=== PATIENT | male | born 1955 | race Caucasian/White ===

== ENCOUNTER 2021-04-15 11:21 | Emergency (ER) | payer MEDICARE, SELFPAY ==
[2021-04-15 11:30] VITALS: BP 128/78; PULSE 89; RESP 16; TEMP 37.6; O2SAT 99
--- NOTE | 2021-04-15 11:55 | ED.SKABFB ---
HPI - Skin/Abscess/Foreign Bdy General Chief complaint: Skin/Abscess/Foreign Body Stated complaint: lt armpit swelling/redness Source: patient and RN notes reviewed Limitations: no limitations History of Present Illness HPI narrative: The patient, who is on several meds, presents with axillary discomfort. Patient states he has a shorter 1 to 2-day history of left armpit discomfort and redness. Symptoms are mild, worse palpation, better with rest, and seems to have diffusely extended from half-dollar size area to hand size. No fever, prior/other rashes, discharge, streaking; he desires offered parenteral/IM treatment. There is no specific abscess or fluctuance; but there is some minimal induration/early phlegmon; he was traveling and would like some home med refill also Related Data Home Medications Medication Instructions Recorded Confirmed acetaminophen-codeine 1 tablet PO PRN PRN 04/15/21 04/15/21 alprazolam 0.25 mg PO DAILY 04/15/21 04/15/21 aspirin [Adult Aspirin EC Low 81 mg PO DAILY 04/15/21 04/15/21 Strength] whtkfxufmy-akvubgakvljdx-ldmp 1 - 2 tablet PO PRN PRN 04/15/21 04/15/21 [Fioricet] cholecalciferol (vitamin D3) 25 mcg PO DAILY 04/15/21 04/15/21 [Vitamin D3] duloxetine 30 mg PO DAILY 04/15/21 04/15/21 econazole 1 applic TOPICAL DAILY 04/15/21 04/15/21 nitroglycerin [Nitrostat] 0.4 mg SUBLINGUAL ONCE 04/15/21 04/15/21 pantoprazole 40 mg PO QAM 04/15/21 04/15/21 propranolol 10 mg PO Q12H 04/15/21 04/15/21 rosuvastatin 20 mg PO DAILY 04/15/21 04/15/21 Allergies Allergy/AdvReac Type Severity Reaction Status Date / Time Sulfa (Sulfonamide AdvReac Nausea Verified 04/15/21 11:31 Antibiotics) tramadol AdvReac Insomnia Verified 04/15/21 11:31 Review of Systems Review of Systems: Narrative: General/Constitutional: No weight loss,fever Eyes: N0: Redness,discharge Ears/Nose/Throat: No: Epistaxis,ear discharge Respiratory: Denies: Hemoptysis Gastrointestinal: No Vomiting, Bleeding-rectal Skin: No REPORTS possible lumps, eruption Neurologic: No Focal Weakness,Sz Hematologic: Denies: Petechiae/Purpura Psychiatric: No: Suicida ideationl All Other Systems: Reviewed and Negative PMFSH Comments At time of signature, agree with nursing past medical, surgical, social and family history. There is no relevant family history pertinent to the presenting complaint Exam Narrative: Exam Narrative: General Appearance: Well nourished, Normocephalic Eye: PERRLA, Conjunctiva clear Ear: External ear normal Nose: Normal nose, Nare clear Mouth/Throat: Normal appearing, Supple Respiratory: Airway patent, No respiratory distress Musculoskeletal: Moves all extremities, Non tender Spine/Back: Normal ROM Skin: Warm, Dry; hand-sized area pink/inflamed, tender left axilla with rare areas of induration Neurological: A&O x3 Psychiatric: Normal mood, Normal affect Course Vital Signs Vital signs: Vital Signs Temperature 99.6 F 04/15/21 11:30 Pulse Rate 89 04/15/21 11:30 Respiratory Rate 16 04/15/21 11:30 Blood Pressure 128/78 04/15/21 11:30 Pulse Oximetry 99 04/15/21 11:30 Temperature 99.6 F 04/15/21 11:30 Pulse Rate 89 04/15/21 11:30 Respiratory Rate 16 04/15/21 11:30 Blood Pressure 128/78 04/15/21 11:30 Pulse Oximetry 99 04/15/21 11:30 Discharge Plan Discharge Clinical Impression: Cellulitis Qualifiers: Site of cellulitis: extremity Site of cellulitis of extremity: axilla Laterality: left Qualified Code(s): L03.112 - Cellulitis of left axilla Patient Disposition: Home, Self-Care Condition: Stable Instructions: Antibiotic Form, Cellulitis (ED) Additional Instructions: Take clindamycin with food, antacid and or probiotic; stop if diarrhea occurs Go to hospital if not improved per handout Prescriptions: New clindamycin HCl 300 mg capsule 300 mg PO TID Qty: 21 RF: 0 nitroglycerin 0.4 mg tablet, sublingual 0.4 mg sublingual Q5-15M
[2021-04-15] MEDS: cefTRIAXone 1 GM VIAL 0.5 GM IM (12:20)
[2021-04-15] MEDS: LIDOCAINE HCL 1% LOCAL INJ 20 ML VIAL 2.1 ML INFILTRATE (12:21)
== END 2021-04-15 12:50 | disposition home or self-care (01) ==
PROVIDERS: Emergency Provider Emergency Medicine
DX: L03.112 Cellulitis of left axilla (principal); Z95.5 Presence of coronary angioplasty implant and graft; E78.00 Pure hypercholesterolemia, unspecified; K21.9 Gastro-esophageal reflux disease without esophagitis; N40.0 Benign prostatic hyperplasia without lower urinary tract symptoms
CPT/HCPCS: 96372; 99213; G0463; J0696

== ENCOUNTER 2022-10-31 08:47 | Inpatient (IN) | payer MEDICARE, SELFPAY ==
[2022-10-31] VITALS (15 sets, daily range): BP systolic 93–103; BP diastolic 50–78; PULSE 82–105; RESP 16–27; TEMP 36.6–37.3; O2SAT 93–100; BMI 23.8
--- NOTE | ~2022-10-31 | CT_ITS ---
EXAMINATION: CTA chest PE abdomen pel DATE: 11/04/2022 15:16 INDICATION: Cough, shortness of breath, and chest pain. TECHNIQUE: Computed tomography angiography (CTA) of the chest was performed with 100 mL Omnipaque-350 intravenous contrast timed to evaluate the pulmonary arteries. Coronal maximum intensity projection 3D-reconstructions were created by the technologist. Computed tomography (CT) of the abdomen and pelv is was performed with intravenous contrast. Automated exposure control and iterative reconstruction t echnique were employed. The dose-length product was 641.56 mGy-cm. COMPARISON: CT abdomen and pelvis 10/31/2022 FINDINGS: CTA chest: There is mild emphysema. There are small pleural effusions. There is mild dependent atelec tasis bilaterally. The heart size is normal. There are coronary artery calcifications. No pericardial effusion. There is no pulmonary embolus. There is mild thoracic spondylosis. CT abdomen and pelvis: There are 2 liver masses measuring up to 1.5 cm that were hyperenhancing on th e prior CT and hyperechoic on the prior ultrasound, consistent with hemangiomas. There are cysts in t he liver measuring up to 13 mm. The gallbladder, spleen, pancreas, and adrenal glands are normal. The re are cysts in the kidneys measuring up to 1.5 cm on the right. The prostate is mildly enlarged. The re is a left inguinal hernia containing fat. There are scattered diverticula in the colon. There is f at stranding around the sigmoid colon. There are foci of free gas near the sigmoid colon. There are s mall abscesses near the sigmoid colon measuring up to 3.7 x 3.0 x 1.5 cm (volume of 5 mL given the sh ape). There are changes of right inguinal hernia repair. There are no pathologically enlarged lymph n odes. There is moderate lumbar spondylosis. IMPRESSION: 1. Sigmoid diverticulitis with microperforation and worsened small perisigmoid abscesses. 2. No pulmonary embolus. 3. New small pleural effusions. 4. Mild emphysema. Reviewed, dictated and finalized at location A. LE MACHINE OPERATOR
--- NOTE | ~2022-10-31 | XR_ITS ---
XR chest 2V 11/06/2022 07:57 Indication: Shortness of breath Procedure: 2 view chest Comparison: 10/31/2022 Findings: Heart size normal. Small pleural effusions. Bibasilar atelectasis. No focal pneumonia, charisma a or pneumothorax. Impression: 1: Small pleural effusions with bibasilar atelectasis. Reviewed, dictated and finalized at location A. MITH HELPER Impression: 1: Small pleural effusions with bibasilar atelectasis.
--- NOTE | ~2022-10-31 | CT_ITS ---
EXAMINATION: CT abdomen pelvis w con DATE: 10/31/2022 10:13 INDICATION: Lower abdominal pain with increasing intensity TECHNIQUE: Computed tomography (CT) of the abdomen and pelvis was performed with 100 mL Omnipaque-350 intravenous contrast. Automated exposure control and iterative reconstruction technique were employe d. The dose-length product was 338.36 mGy-cm. COMPARISON: None FINDINGS: Mild dependent atelectasis in bilateral lower lobes. Heart size is normal. No pericardial or pleural effusion. There are couple subcentimeter well-defined low attenuation hepatic cysts. Less well-define d 1 cm hypodense lesion in the right hepatic lobe and larger 1.5 cm lesion in the inferior right hepa tic lobe which is mixed hypodense and enhancing. Gallbladder, pancreas, spleen and bilateral adrenal glands are normal. There are bilateral low-attenuation renal cysts measuring up to 1.7 cm in the righ t kidney. There is mild scattered colonic diverticulosis with focal mild wall thickening and surround ing inflammation presenting at the distal sigmoid colon consistent with diverticulitis. There is a si ngle small focus of extraluminal gas in the left pelvic retroperitoneum along the anterior margin of the distal left common iliac artery. No free intraperitoneal gas or abscess. Minimal nonloculated trinh e fluid in the deep pelvis. Small bowel and appendix are normal. Bladder is normal. No pathologically enlarged abdominal or pelvic lymphadenopathy. Mild to moderate lumbar spondylosis. IMPRESSION: 1. Sigmoid diverticulitis with likely microperforation but no abscess. 2. Indeterminate 1.5 cm right hepatic lobe lesion statistically most likely to represent a hemangioma but would recommend further evaluation with nonemergent pre and postcontrast MRI or CT. Reviewed, dictated and finalized at location B. ERCIAL TITLE EXAMINER
--- NOTE | ~2022-10-31 | US_ITS ---
EXAMINATION: US abdomen limited DATE: 11/03/2022 15:26 INDICATION: Liver mass. TECHNIQUE: Multiple grayscale and Doppler ultrasound images of the abdomen were obtained. COMPARISON: CT abdomen and pelvis 10/31/2022 FINDINGS: The visualized portions of the head and body of the pancreas are normal. There is a 1.9 cm hyperechoic mass in right hepatic lobe. There is a 1.8 cm hyperechoic mass in left hepatic lobe. Ther e is antegrade flow in main portal vein. The gallbladder is normal in size and contains sludge. No ga llstones or sonographic Sebastian sign. Gallbladder wall thickening is noted. The common duct is normal and measures 4 mm. IMPRESSION: 1. Two hyperechoic liver masses with the larger measuring 1.9 cm. In the absence of known malignancy or chronic liver disease, these findings are likely hemangiomas. 2. Gallbladder sludge. Gallbladder wall thickening may be seen with chronic cholecystitis, interstiti al edema, or chronic liver disease. Reviewed, dictated and finalized at location A. OISOTOPE TECHNICIAN IMPRESSION: 1. Two hyperechoic liver masses with the larger measuring 1.9 cm. In the absenc e of known malignancy or chronic liver disease, these findings are likely heman giomas. 2. Gallbladder sludge. Gallbladder wall thickening may be seen with chronic cho lecystitis, interstitial edema, or chronic liver disease.
--- NOTE | ~2022-10-31 | XR_ITS ---
EXAMINATION: XR chest 1V portable DATE: 11/07/2022 06:06 INDICATION: Shortness of breath. TECHNIQUE: A single frontal view of the chest was obtained. COMPARISON: Chest 2 views 11/06/2022, chest CT 11/04/2022 FINDINGS: There are small pleural effusions. There is no pneumonia or pneumothorax. The heart size is normal. IMPRESSION: 1. Stable small pleural effusions. Reviewed, dictated and finalized at location A. OW FABRIC CALENDERER
--- NOTE | ~2022-10-31 | XR_ITS ---
EXAMINATION: XR chest 1V portable DATE: 10/31/2022 09:29 INDICATION: Low abdominal pain. TECHNIQUE: A single frontal view of the chest was obtained on 2 radiographs. COMPARISON: None. FINDINGS: There is no pneumonia, pleural effusion, or pneumothorax. The heart size is normal. IMPRESSION: 1. No acute cardiopulmonary disease. Reviewed, dictated and finalized at location A. R SAFETY TEACHER
--- NOTE | 2022-10-31 09:10 | ED.ABDPAIN ---
HPI - Abdominal Pain General Chief Complaint: Abdominal Pain Stated Complaint: abd pain Time Seen by Provider: 10/31/22 08:54 History of Present Illness HPI narrative: Pt. w/ PMH of hernia repair, GERD, migraines and HLD presents to ER w/complaints of having abdominal pain that started yesterday and has gradually intensified throughout yesterday and into this morning. The pain is low in the abdomen, nothing makes better, but coughing, yawning and sneezing makes the pain worse. He has no V/D, but has had some nausea. He has a PMH of a hernia repair years ago. Denies any CP, dyspnea. Pain scale (0-10): 7 Radiation: none Migration to: no migration Related Data Home Medications Medication Instructions Recorded Confirmed acetaminophen 325 mg-codeine 30 mg 1 tablet PO PRN PRN Pain 04/15/21 04/15/21 tablet alprazolam 0.25 mg tablet 0.25 mg PO DAILY 04/15/21 04/15/21 aspirin 81 mg tablet,delayed 81 mg PO DAILY 04/15/21 04/15/21 release yftyrscdki-qkjyjyirdafcd-fzqjkjbb 1 - 2 tablet PO PRN PRN Headache 04/15/21 04/15/21 50 mg-325 mg-40 mg tablet cholecalciferol (vitamin D3) 25 25 mcg PO DAILY 04/15/21 04/15/21 mcg (1,000 unit) capsule (Vitamin D3) duloxetine 30 mg capsule,delayed 30 mg PO DAILY 04/15/21 04/15/21 release econazole 1 % topical cream 1 applic topical DAILY 04/15/21 04/15/21 nitroglycerin 0.4 mg sublingual 0.4 mg sublingual ONCE 04/15/21 04/15/21 tablet (Nitrostat) pantoprazole 40 mg tablet,delayed 40 mg PO QAM 04/15/21 04/15/21 release propranolol 10 mg tablet 10 mg PO Q12H 04/15/21 04/15/21 rosuvastatin 20 mg tablet 20 mg PO DAILY 04/15/21 04/15/21 Allergies Allergy/AdvReac Type Severity Reaction Status Date / Time Sulfa (Sulfonamide AdvReac Nausea Verified 10/31/22 09:02 Antibiotics) tramadol AdvReac Insomnia Verified 10/31/22 09:02 Review of Systems Review of Systems: All systems reviewed & are unremarkable except as noted in HPI and below PMFSH Past Medical History Medical History Dyslipidemia GERD (gastroesophageal reflux disease) Migraines Surgical History Surgical History H/O hernia repair Social History Social History Alcohol use details: social Exam Const: General: healthy appearing and alert; No no acute distress (appears to be in pain distress.) Nutritional Appearance: well nourished Orientation/consciousness: patient oriented x3 Limitations: no limitations HENMT: Head: normal to inspection Face/Nose/Sinus: Normal external nose present Face and sinus: normal facial exam Mouth: Yes Normal oral and palatal mucosa present Eyes: Conjunctivae: conjunctivae normal Neck: Neck: normal visual inspection and no lymphadenopathy Chest: Chest palpation & inspection: normal inspection of the chest Resp: Effort & Inspection: normal respiratory effort Auscultation: clear to auscultation bilaterally Cardio: Rate: regular rate Rhythm: regular rhythm Heart sounds: no murmurs GI: Inspection: non-distended GI Palp: Yes Soft to palpation, Yes Tenderness to palpation present (GI) (RLQ, LLQ, and suprapubic), Yes Guarding due to palpation present (GI) (Worse in LLQ, voluntary), No Rigid due to palpation, No Hernia present and No Palpable mass present Auscultation: normal bowel sounds Back/Spine/Pelvis: Back: no CVA tenderness Skin: General skin exam: normal color Rashes: no rashes Wounds: no wounds Neuro: General: patient oriented x3, moves all extremities and no focal motor deficits Speech: normal speech Extrem: General: normal to inspection and no pedal edema Psych: Mental Status: mental status grossly normal Affect: normal affect Course Course Emergency Course: Pt's labs were reviewed and it is noted that he has a grossly elevated WBC count with Neutrophilic shift. CT scan demonstrates a Divert
[2022-10-31 09:14] LABS: Basophils Absolute Auto 0.1 K/mm3 (0.0-0.1); Basophils Percent Auto 0.3 % (0.2-1.2); Eosinophils Percent Auto 0.1 % (0-4.4); Hematocrit 44.3 % (42.0-52.0); Hemoglobin 14.9 g/dL (14.0-18.0); Immature Granulocyte Absolute 0.09 K/mm3 (0.00-0.031); Immature Granulocyte Percent A 0.5 % (0-0.5); Lymphocytes Absolute Auto 1.07 K/mm3 (0.9-3.2); Lymphocytes Percent Auto 5.7 % (18.3-44.2); Mean Corpuscular HGB Conc 33.6 g/dl (32-36); Mean Corpuscular Hemoglobin 28.9 pg (26-34); Mean Corpuscular Volume 85.9 fl (80-100); Monocytes Absolute Auto 1.6 K/mm3 (0.1-0.6); Monocytes Percent Auto 8.7 % (2.6-8.5); Neutrophils Absolute Auto 15.8 K/mm3 (1.3-6.7); Neutrophils Percent Auto 84.7 % (45.5-73.1); Platelet Count Result 203 k/mm3 (150-375); Red Blood Count 5.16 M/mm3 (4.6-6.20); Red Cell Distribution Width 13.3 % (11.5-14.5); White Blood Count 18.7 K/mm3 (4.5-10.0)
[2022-10-31 09:30] LABS: Alanine Aminotransferase 27 U/L (6-50); Albumin Level 3.9 g/dL (3.5-5.1); Alkaline Phosphatase 68 U/L (38-126); Anion Gap 1 mmol/L (8-16); Aspartate Amino Transferase 24 U/L (17-59); Bilirubin,Total 0.7 mg/dL (0.2-1.3); Blood Urea Nitrogen 23 mg/dL (9-20); Calcium 8.8 mg/dL (8.4-10.2); Carbon Dioxide 30 mmol/L (22-30); Chloride 102 mmol/L (98-107); Estimated CRCL calculation 70 ml/min; Estimated Glomerular Filt Rate > 60; Glucose 115 mg/dL (65-110); Lipase 151 U/L (23-300); Potassium 3.6 mmol/L (3.4-5.0); Sodium 133 mmol/L (137-145)
[2022-10-31] MEDS: ONDANSETRON INJ 4 MG/2 ML VIAL IV PUSH (09:44)
[2022-10-31] MEDS: MORPHINE SULFATE (*CRX) 4 MG/ML INJ IV PUSH (09:44)
[2022-10-31] MEDS: SODIUM CHLORIDE 0.9% IV 1,000 ML 999 ML IV CONT ×2 (09:45→10:56)
[2022-10-31 09:59] LABS: Appearance Urine Clear (Clear); Bilirubin Urine Negative (Negative); Blood Urine Trace-intact (Negative); Color Urine Yellow (Yellow); Glucose Urine UA Negative (Negative); Ketones Urine Negative (Negative); Leukocyte Esterase Ur Negative LEU/UL (Negative); Nitrate Urine Negative (Negative); Protein Urine Negative (Negative); Urobilinogen Urine 0.2 mg/dL (<2.0)
[2022-10-31 10:09] LABS: Bacteria Urine Trace /hpf; Mucus Urine Rare /lpf; Squamous Epithelial Cell Urine Rare /hpf (Few); WBC Urine 0-3 /hpf
[2022-10-31 10:12] LABS: Add Urine Microscopic? YES
[2022-10-31 10:56] LABS: Lactic Acid Reflex 1.3 mmol/L (0.7-2.0)
[2022-10-31] MEDS: metroNIDAZOLE 500 MG/ISO 100ML 500 MG/100 ML BAG 100 MG IVPB (10:56)
[2022-10-31] MEDS: HYDROmorphone HCL INJ (*CRX) 1 MG/ML SYR IV PUSH ×4 (10:56→22:43)
[2022-10-31 12:29] LABS: Influenza A QL RT-PCR Negative (Negative); Influenza B QL RT-PCR Negative (Negative); SARS-CoV-2 RNA PCR Negative
--- NOTE | 2022-10-31 12:38 | PM.IMHP ---
H&P: HPI History of Present Illness Date/Time: 10/31/22 12:38 Chief Complaint: Diverticulitis with micro perforation Narrative: The patient is a 66-year-old male presenting to the emergency department complaining of severe lower abdominal pain, left greater than right. Patient reports that the pain started yesterday and has intensified since that time. The patient reports the pain is now more localized in the left lower quadrant. The patient reports the pain seems to be worse with movement, although it is constantly present. The patient reports associated nausea and anorexia, however denies any vomiting or changes in bowel habits. Patient denies previous episodes. The patient has had previous colonoscopy significant for diverticulosis. Review of Systems Constitutional: Constitutional: Reports as per HPI, Reports anorexia, Denies chills, Reports fatigue, Reports fever(s), Denies increased appetite, Reports lethargy, Reports malaise, Reports poor appetite, Reports weakness, Denies weight gain and Denies weight loss Eyes: Eyes: Reports no additional eye complaints ENT: Reports system reviewed and no additional complaints, except as documented Cardiovascular: Cardiovascular: Reports no additional cardiovascular complaints Respiratory: Respiratory: Reports no additional respiratory complaints Gastrointestinal: Gastrointestinal: Reports as per HPI, Reports abdominal pain, Reports bloating, Reports GI cramping, Reports nausea, Denies vomiting and Denies hematemesis Genitourinary: Genitourinary: Reports no additional male genitourinary complaints Musculoskeletal: Musculoskeletal: Reports no additional musculoskeletal complaints Integumentary/Breasts: Skin/Breast: Reports system reviewed and no additional complaints, except as docu Neurologic: Reports system reviewed and no additional complaints, except as documented Psychiatric: Psychiatric: Reports no additional psychiatric complaints Endocrine: Endocrine: Reports no additional endocrine complaints Hematologic/Lymphatic: Hematologic/Lymphatic: Reports no additional hematologic/lymphatic complaints Allergic/Immunologic: Allergic/Immunologic: Reports no additional allergic/immunologic complaints PMFSH Past Medical History Medical History Dyslipidemia GERD (gastroesophageal reflux disease) Migraines Surgical History Surgical History H/O hernia repair Social History Social History Alcohol use details: social Meds Home Medications and Allergies Home Medications Medication Instructions Recorded Confirmed Type acetaminophen 325 mg-codeine 30 mg 1 tablet PO PRN PRN Pain 04/15/21 04/15/21 History tablet alprazolam 0.25 mg tablet 0.25 mg PO DAILY 04/15/21 04/15/21 History aspirin 81 mg tablet,delayed 81 mg PO DAILY 04/15/21 04/15/21 History release prcqsmybec-uktzjspuhzxcq-ljlnnxen 1 - 2 tablet PO PRN PRN Headache 04/15/21 04/15/21 History 50 mg-325 mg-40 mg tablet cholecalciferol (vitamin D3) 25 25 mcg PO DAILY 04/15/21 04/15/21 History mcg (1,000 unit) capsule (Vitamin D3) clindamycin HCl 300 mg capsule 300 mg PO TID #21 caps 04/15/21 Rx duloxetine 30 mg capsule,delayed 30 mg PO DAILY 04/15/21 04/15/21 History release econazole 1 % topical cream 1 applic topical DAILY 04/15/21 04/15/21 History nitroglycerin 0.4 mg sublingual 0.4 mg sublingual Q5-15M PRN chest 04/15/21 Rx tablet pain #20 tabs nitroglycerin 0.4 mg sublingual 0.4 mg sublingual ONCE 04/15/21 04/15/21 History tablet (Nitrostat) pantoprazole 40 mg tablet,delayed 40 mg PO QAM 04/15/21 04/15/21 History release propranolol 10 mg tablet 10 mg PO Q12H 04/15/21 04/15/21 History rosuvastatin 20 mg tablet 20 mg PO DAILY 04/15/21 04/15/21 History Allergies Allergy/AdvReac Type Severity Reaction Status Date / T
[2022-10-31] MEDS: PIPERACILLIN/TAZOBACTAM SOD 4.5 GM in SODIUM CHLORIDE 0.9% IV 100 ML 200 ML IVPB (12:46)
[2022-10-31] MEDS: MORPHINE SULFATE (*CRX) 2 MG/ML INJ 4 MG IV PUSH (13:48)
[2022-10-31] MEDS: DEXTROSE 5%/0.9% SOD CHL 1,000 ML 100 ML IV CONT (16:09)
[2022-10-31] MEDS: HYDROcodone/acetaminophen (*CRX) 5-325 MG TABLET 1 TAB PO (19:30)
[2022-10-31] MEDS: FLUTICASONE/SALMETEROL 115-21 MCG INHALER 1 PUFF 2 PUFF INHALATION (22:43)
[2022-11-01] VITALS (12 sets, daily range): BP systolic 91–109; BP diastolic 62–88; PULSE 77–180; RESP 16–22; TEMP 36.1–37.4; O2SAT 93–97
[2022-11-01] MEDS: HYDROmorphone HCL INJ (*CRX) 1 MG/ML SYR IV PUSH ×6 (01:39→20:37)
[2022-11-01] MEDS: DEXTROSE 5%/0.9% SOD CHL 1,000 ML 100 ML IV CONT ×2 (01:43→17:04)
[2022-11-01] MEDS: HYDROcodone/acetaminophen (*CRX) 5-325 MG TABLET 1 TAB PO ×2 (03:49→08:25)
[2022-11-01] MEDS: ALPRAZolam (*CRX) 0.25 MG TABLET PO (06:02)
[2022-11-01] MEDS: ASPIRIN 81 MG ENTERIC TABLET PO (08:25)
[2022-11-01] MEDS: PANTOPRAZOLE 40 MG TABLET PO (08:25)
[2022-11-01] MEDS: DULoxetine HCL 30 MG CAPSULE.DR PO (08:25)
[2022-11-01] MEDS: ROSUVASTATIN 10 MG TABLET 20 MG PO (08:25)
[2022-11-01] MEDS: CHOLECALCIFEROL 1,000 UNITS TABLET 1000 UNITS PO (08:26)
[2022-11-01] MEDS: FLUTICASONE/SALMETEROL 115-21 MCG INHALER 1 PUFF 2 PUFF INHALATION ×2 (10:00→21:30)
[2022-11-01] MEDS: ACETAMINOPHEN/BUTALBITAL/CAFFEINE 325-50-40 MG TABLET (FIORICET) PO (10:59)
[2022-11-01 12:29] LABS: Hematocrit 39.5 % (42.0-52.0); Hemoglobin 12.7 g/dL (14.0-18.0); Mean Corpuscular HGB Conc 32.2 g/dl (32-36); Mean Corpuscular Hemoglobin 28.5 pg (26-34); Mean Corpuscular Volume 88.8 fl (80-100); Mean Platelet Volume 9.5 fl (7.4-10.4); Platelet Count Result 199 k/mm3 (150-375); Red Blood Count 4.45 M/mm3 (4.6-6.20); Red Cell Distribution Width 13.8 % (11.5-14.5); White Blood Count 14.2 K/mm3 (4.5-10.0)
[2022-11-01] MEDS: ONDANSETRON INJ 4 MG/2 ML VIAL IV PUSH (12:53)
--- NOTE | 2022-11-01 13:12 | ECG_ITS ---
Measurements Intervals [place] Rate: 176 P: GA: 0 QRS: 3 QRSD: 132 T: -37 QT: 258 QTc: 443 Interpretive Statements ATRIAL FIBRILLATION WITH RAPID VENTRICULAR RESPONSE RIGHT BUNDLE BRANCH BLOCK BORDERLINE ST-T WAVE ABNORMALITY- ANTEROLAT/INF LEADS ABNORMAL ECG NO PREVIOUS ECG AVAILABLE FOR COMPARISON Electronically Signed On 11-01-2022 14:25:32 SECRET SERVICE AGENT by Shakeel Patel D.O.
[2022-11-01] MEDS: DIGOXIN INJ 250 MCG/ML 2 ML AMP (*BKC) 125 MCG IV PUSH (13:28)
--- NOTE | 2022-11-01 13:30 | PM.CNCAR ---
Assessment and Plan Assessment and plan (1) New onset a-fib: Code(s): I48.91 - Unspecified atrial fibrillation Status: Acute Assessment and Plan: New onset atrial fibrillation with rapid ventricular response in the setting of diverticulitis and pain secondary to this. No history of atrial fibrillation. According to patient's history, likely onset was around 1 p.m. this afternoon. I discussed the pathophysiology of atrial fibrillation as well as management strategies including rate control versus rhythm control. Since the patient according to his history and symptoms probably went into atrial fibrillation not long before by interview with him and because of hypotension, I am electing to pursue a rhythm control strategy with IV amiodarone. I discussed the potential adverse affects of long-term amiodarone use with the patient and his . I also discussed that my intention is not to commit the patient to long-term amiodarone use. I will give him therapeutic dose of Lovenox x1. Need for long-term anticoagulation can be determined depending on his response to amiodarone. Can consider electrical cardioversion if amiodarone is unsuccessful in controlling his rhythm/rate. History of Present Illness History of Present Illness Consult date/time: 11/01/22 13:30 Requesting physician: Keke Guzmán NP Consult reason: atrial fibrillation Reason For Visit: Sigmoid Diverticulitis With Microperforation Narrative: Mr. Coelho Is a 66-year-old male with a past medical history of degenerative disc disease, diverticulosis, GERD, chronic pain, coronary artery disease status post LAD stent in February of 2019. This is a patient who presented to the emergency department with a complaint of severe lower abdominal pain. He was admitted to the hospital and is being treated conservatively for peritonitis with bowel rest and IV antibiotics. This afternoon, patient called the nurse and is room because he was feeling funny. He was complaining of some nausea as well as diaphoresis. Vital signs were obtained and his heart rate was noted to be in the 170s to 180s. He was placed on telemetry and noted to be in atrial fibrillation with rapid ventricular response. Patient denies any history of atrial fibrillation or any other arrhythmia is. Aside from his coronary artery disease he does not have any cardiac problems. He specifically denies any heart failure. Prior to this episode, he has not experienced any palpitations, chest pain, shortness of breath. Currently, he is does not have any complaints and is asymptomatic. His current ECG is demonstrating atrial fibrillation with rapid ventricular response with a rate Of 176 beats per minute with a right bundle branch block. This right bundle branch block is chronic according to the patient. No previous ECG for comparison. Review of Systems Constitutional: Constitutional: Denies chills, Reports fatigue, Denies fever(s), Denies headache(s) and Denies malaise Eyes: Eyes: Denies change in vision ENT: Reports Normal hearing present, Denies dizziness, Denies headache(s) and Denies hearing loss Cardiovascular: Cardiovascular: Denies chest pain, Denies chest pain at rest, Denies chest pain with activity, Denies syncope, Denies leg edema, Denies palpitations, Denies dyspnea and Denies dyspnea on exertion Respiratory: Respiratory: Reports cough, Denies dyspnea, Denies dyspnea on exertion and Denies wheezing Gastrointestinal: Gastrointestinal: Reports abdominal pain, Denies constipation, Reports heartburn, Denies diarrhea, Denies nausea and Denies vomiting Genitourinary: Genitourinary: Denies hematuria and Denies dysuria Musculoskeletal: Musculoskeletal: Reports back pain, Denies myalgias, Reports arthralgias, Denies muscle cramps and Reports neck pain Integumentary/Breasts: Skin/Breast: Denies wounds Neurologic: Reports Normal hearing present, Denies confusion, Denies dizziness, Denies sy
--- NOTE | 2022-11-01 13:42 | PM.IMCN ---
Assessment and Plan Assessment and plan (1) New onset a-fib: Code(s): I48.91 - Unspecified atrial fibrillation Status: Acute Assessment and Plan: -Mervin Vasc score 0 -cardiology has been consulted -initially the patient was given digoxin because his blood pressure was low. -patient was started on an amiodarone drip -no anticoagulation has been started as the patient's chads Vasc score is 0. -echo has been ordered -the patient was started on IV Lopressor p.r.n. per Cardiology (2) Diverticulitis of colon with perforation: Code(s): K57.20 - Diverticulitis of large intestine with perforation and abscess without bleeding Status: Acute Assessment and Plan: -continue with Zosyn -surgery has admitted the patient -the patient is on clear liquid (3) Anxiety: Code(s): F41.9 - Anxiety disorder, unspecified Status: Acute Assessment and Plan: -patient's alprazolam has been continued. (4) Hyperlipidemia: Code(s): E78.5 - Hyperlipidemia, unspecified Status: Acute Assessment and Plan: -the patient is on rosuvastatin (5) Obstructive sleep apnea: Code(s): G47.33 - Obstructive sleep apnea (adult) (pediatric) Status: Acute Assessment and Plan: Continue with home settings for CPAP (6) BPH (benign prostatic hyperplasia): Code(s): N40.0 - Benign prostatic hyperplasia without lower urinary tract symptoms Status: Acute Assessment and Plan: -continue with home treatment (7) Chronic back pain: Code(s): M54.9 - Dorsalgia, unspecified; G89.29 - Other chronic pain Status: Acute Assessment and Plan: -continue with gabapentin (8) Headache: Code(s): R51.9 - Headache, unspecified Status: Acute Assessment and Plan: -the patient is on gabapentin -he is on propanolol -she is on Fioricet. Plan Thank you for allowing us to be involved with this patient's care. We will Co manage medical care. HPI Data of Consult Consult date: 11/01/22 Requesting Physician: Kelsey Mejía MD Primary Care Provider: UNKNOWN,DOCTOR Consult Narrative Narrative: Jr Coelho is a 66 year old male who came to the emergency room on 07/31/2023 with a past medical history of hernia repair GERD and migraines. The patient was complaining of having abdominal pain that started the previous day. Gradually intensified throughout the day. Nothing was making it the pain any better. Abdominal pelvis CT was read as the following?Sigmoid diverticulitis with likely microperforation but no abscess. 2. Indeterminate 1.5 cm right hepatic lobe lesion statistically most likely to represent a hemangioma but would recommend further evaluation with nonemergent pre and postcontrast MRI or CT. His white count is 14.2. His H&H is 12.7 and 39.5 which is lower from his baseline. The patient was negative for influenza A/B and COVID. The patient has no prior history of having any irregular heart rate. The patient has been on Zosyn. The patient was found to be in AFib with RVR which is new to the patient. His blood pressure was low so I gave him some digoxin. Cardiology has seen him and has started him on an amiodarone drip. Patient's heart rate initially was in the 170s. Now it is down to the 90s. The patient was transferred off of the medical floor and transferred to the chest Pain Clinic as IMU overflow. The patient was admitted to inpatient per surgery and the hospitalist group was consulted on the date of service of 11/01/2022. Review of Systems Review of Systems: See HPI All systems reviewed & are unremarkable except as noted in HPI and below Constitutional: Constitutional: Reports as per HPI and Reports no additional constitutional complaints Eyes: Eyes: Reports as per HPI and Reports no additional eye complaints ENT: Reports system reviewed and no additional complaints, except as documented and Reports Normal hearing
[2022-11-01 13:50] LABS: Glucose Point of Care 108 mg/dl (65-105)
--- NOTE | 2022-11-01 13:52 | PM.PNGS ---
Progress Note: A&P Assessment and Plan (1) Diverticulitis of colon with perforation: Code(s): K57.20 - Diverticulitis of large intestine with perforation and abscess without bleeding Status: Acute Assessment and Plan: exam improved, cont IV abx, clears (2) New onset a-fib: Code(s): I48.91 - Unspecified atrial fibrillation Status: Acute Assessment and Plan: new onset, will get stat EKG, med/cards consult Subjective Subjective Date/Time Seen: 11/01/22 13:52 feels ok, some chest discomfort, abd pain better Review of Systems Review of Systems: All systems reviewed & are unremarkable except as noted in HPI and below Exam Const: General: cooperative and acute distress mild Resp: Auscultation: clear to auscultation bilaterally Cardio: Rate: tachycardic Rhythm: abnormal rhythm GI: GI Palp: Yes abdominal tenderness, Yes Soft to palpation, Yes Tenderness to palpation present (GI), No Guarding due to palpation present (GI) and No Rigid due to palpation Objective Data Vital Signs Vital Signs: Vital Signs - 24 hr 10/31/22 14:29 10/31/22 20:00 10/31/22 22:00 Temperature 37.3 C 37.0 C Pulse Rate 92 86 Respiratory Rate 17 18 Blood Pressure 102/78 97/54 L Pulse Oximetry 97 93 Oxygen Delivery Room Air 10/31/22 22:40 11/01/22 05:21 11/01/22 13:04 Temperature 36.7 C 36.1 C L Pulse Rate 82 100 96 Respiratory Rate 18 16 Blood Pressure 106/64 91/62 L Pulse Oximetry 95 94 97 Oxygen Delivery Autopap Room Air 11/01/22 13:43 Temperature Pulse Rate 180 H Respiratory Rate Blood Pressure 101/88 Pulse Oximetry Oxygen Delivery Intake/Output Intake/Output: Intake & Output 10/29/22 10/30/22 10/31/22 11/01/22 23:59 23:59 23:59 23:59 Intake Total 2800 1150 Output Total 150 Balance 2800 1000 Meds/Results Medications: Active Medications Generic Name Dose Route Start Last Admin Trade Name Freq PRN Reason Stop Dose Admin Acetaminophen 650 mg 10/31/22 19:50 Acetaminophen 325 Mg Tablet PO QID PRN Pain RATED 1-3 Acetaminophen/Butalbital/Caffeine 1 - 2 tab 10/31/22 19:50 11/01/22 10:59 Acetaminophen/Butalbital/Caffeine 325-50-40 Mg Tablet (Fioricet) PO 1 tab DAILY PRN Administration Headache PAIN 6-10 Hydrocodone Bitart/Acetaminophen 1 tab 10/31/22 15:47 11/01/22 08:25 Hydrocodone/Acetaminophen (*Crx) 5-325 Mg Tablet PO 1 tab Q4H PRN Administration Pain Rated 4-6 Albuterol 2 puff 10/31/22 19:50 Albuterol Sulfate (*Sp) Aerosol 1 Puff INHALATION Q4H PRN Wheezing Alprazolam 0.25 mg 10/31/22 19:50 11/01/22 06:02 Alprazolam (*Crx) 0.25 Mg Tablet PO 0.25 mg DAILY PRN Administration anxiety Aspirin 81 mg 11/01/22 09:00 11/01/22 08:25 Aspirin 81 Mg Enteric Tablet PO 81 mg DAILY KEAGAN Administration Aspirin 325 mg 10/31/22 19:50 Aspirin 325 Mg Tablet PO BID PRN Headache PAIN 1-5 Duloxetine HCl 30 mg 11/01/22 09:00 11/01/22 08:25 Duloxetine Hcl 30 Mg Capsule.Dr PO 30 mg DAILY KEAGAN Administration Hydromorphone HCl 1 mg 10/31/22 15:47 11/01/22 13:38 Hydromorphone Hcl Inj (*Crx) 1 Mg/Ml Syr IV PUSH 1 mg Q2H PRN Administration Pain Rated 7-10 Dextrose/Sodium Chloride 1,000 mls @ 100 mls/hr 10/31/22 10:55 11/01/22 10:05 Dextrose 5% Sodium Chloride 0.9% IV CONT Not Given .Q10H KEAGAN Piperacillin/Tazobactam/Dextrose 3.375 gm in 50 mls @ 100 mls/hr 10/31/22 18:00 11/01/22 11:30 Zosyn 3.375 Gm/D5w 50ml Pm IVPB Infused Q6HR KEAGAN Infusion Miconazole Nitrate 1 applic 10/31/22 19:50 Miconazole Nitrate 2% Cream 30 Gm Tube TOPICAL DAILY PRN Skin Irritation Naloxone HCl 0.1 mg 10/31/22 10:52 Naloxone Hcl 0.4 Mg/Ml Vial IV PUSH Q2M PRN Opiate Reversal Nitroglycerin 0.4 mg 10/31/22 19:50 Nitroglycerin Sl 0.4 Mg Tablet SUBLINGUAL Q5M PRN chest pain Ondansetron HCl 4 m
[2022-11-01] MEDS: AMIODARONE 150 MG/D5W 100 ML 150 MG/100 ML BAG 600 MG IV CONT (14:32)
--- NOTE | 2022-11-01 14:33 | PC.NURSE ---
report called to [facility] in [facility]. patient transferred to room 1. belongings with patient. family at bedside.
[2022-11-01] MEDS: AMIODARONE 360 MG/D5W 200 ML 360 MG/200 ML BAG 33.33 MG IV CONT (14:35)
--- NOTE | 2022-11-01 14:37 | ECG_ITS ---
Measurements Intervals Victor Rate: 97 P: 55 CO: 122 QRS: -20 QRSD: 130 T: -18 QT: 318 QTc: 405 Interpretive Statements SINUS RHYTHM POSSIBLE LEFT ATRIAL ENLARGEMENT RIGHT BUNDLE BRANCH BLOCK ABNORMAL ECG COMPARED TO ECG 11/01/2022 14:17:59 SINUS RHYTHM NOW PRESENT Electronically Signed On 11-01-2022 15:37:51 PHYSICIAN GENERAL INTERNAL MEDICINE by Shakeel Patel D.O.
--- NOTE | 2022-11-01 14:56 | PC.NURSE ---
Patient arrived to [facility] room 1 at 1430. HR 175. Amio bolus started immediately. Additional IV placed in right FA. Call light and belonging within reach. bedside. All questions answered.
[2022-11-01 15:46] LABS: Thyroid Stimulating Hormone 0.656 uIU/mL (0.465-4.680)
[2022-11-01] MEDS: ACETAMINOPHEN/BUTALBITAL/CAFFEINE 325-50-40 MG TABLET (FIORICET) 1 TAB PO (20:36)
[2022-11-01] MEDS: AMIODARONE 360 MG/D5W 200 ML 360 MG/200 ML BAG 16.67 MG IV CONT (20:37)
[2022-11-02] VITALS (17 sets, daily range): BP systolic 106–126; BP diastolic 70–82; PULSE 63–80; RESP 14–18; TEMP 36.5–36.9; O2SAT 93–99
--- NOTE | 2022-11-02 | ECHO_ITS ---
Patient Info Name: Jr Coelho Age: 66 years : 1955 Gender: Male Ht: 69 in Wt: 160 lbs BSA: 1.88 m2 HR: 65 bpm BP: 108 / 73 mmHg Heart Rhythm: Sinus Rhythm Technical Quality: Fair Exam Date: 11/02/2022 7:54 AM Exam Location: [facility] Patient Status: Inpatient Admit Date: 10/31/2022 Staff Ordering Physician: Keke Guzmán NP Supervisor Grips: Laurie Bolton RDCS Attending Provider: Kelsey Mejía MD Referring Physician: Arielle RITCHIE; Exam Type: CA echo dop color flow w con Study Info Indications - New onset of afib Complete two-dimensional, color flow and Doppler transthoracic echocardiogram is performed with contrast to opacify the left ventricle and to improve the deliniation of the left ventricle endocardial borders. Contrast/Agitated Saline Contrast/Ag. Saline: Definity Amount: 3.00 ml Administered By: Laurie Bolton RDCS Existing IV Access: Yes IV Access Condition: patent with no signs of infiltration Summary 1. Left ventricular chamber dimension is normal. 2. Left ventricular systolic function is normal, estimated at 60-65%. 3. Right ventricular systolic function is normal. 4. There is mild aortic valve regurgitation. 5. There is mild mitral valve regurgitation. 6. There is mild tricuspid valve regurgitation. 7. There is trace pulmonic regurgitation. 8. The aortic root size at the sinus of Valsalva is mildly dilated. Left Ventricle Left ventricular chamber dimension is normal. Left ventricular systolic function is normal, estimated at 60-65%. There is no increased left ventricular wall thickness. The left ventricular diastolic function is normal. Right Ventricle Right ventricular chamber dimension is normal. Right ventricular systolic function is normal. Left Atria Left atrial chamber dimension is normal. Right Atria Right atrial chamber dimension is normal. Atrial Septum Intact interatrial septum visualized by color flow imaging. Aortic Valve The aortic valve is trileaflet. There is no aortic valve stenosis. There is mild aortic valve regurgitation. Pulmonic Valve The pulmonic valve is not well visualized. There is trace pulmonic regurgitation. Mitral Valve The mitral valve has normal leaflets. There is no mitral valve stenosis. There is mild mitral valve regurgitation. Tricuspid Valve The tricuspid valve leaflets are normal. There is no significant tricuspid valve stenosis. There is mild tricuspid valve regurgitation. Pericardium/Pleural There is no pericardial effusion. Inferior Vena Cava Normal inferior vena cava with <50% collapse upon inspiration consistent with elevated right atrial pressure, 8 mmHg. Aorta The aortic root size at the sinus of Valsalva is mildly dilated. Left Ventricular Outflow Tract Name Value Normal LVOT 2D LVOT Diameter 2.07 cm LVOT Doppler LVOT Peak Gradient 4 mmHg LVOT Mean Gradient 2 mmHg LVOT VTI 16.79 cm LVOT VTI/AV VTI Ra
[2022-11-02] MEDS: DEXTROSE 5%/0.9% SOD CHL 1,000 ML 100 ML IV CONT ×3 (01:32→23:57)
[2022-11-02] MEDS: HYDROmorphone HCL INJ (*CRX) 1 MG/ML SYR IV PUSH ×4 (01:33→13:36)
[2022-11-02 06:44] LABS: Basophils Percent Auto 0.3 % (0.2-1.2); Eosinophils Absolute Auto 0.1 K/mm3 (0-0.3); Eosinophils Percent Auto 0.5 % (0-4.4); Hematocrit 39.8 % (42.0-52.0); Hemoglobin 12.3 g/dL (14.0-18.0); Immature Granulocyte Absolute 0.05 K/mm3 (0.00-0.031); Immature Granulocyte Percent A 0.4 % (0-0.5); Lymphocytes Absolute Auto 0.98 K/mm3 (0.9-3.2); Lymphocytes Percent Auto 8.5 % (18.3-44.2); Mean Corpuscular HGB Conc 30.9 g/dl (32-36); Mean Corpuscular Hemoglobin 28.4 pg (26-34); Mean Corpuscular Volume 91.9 fl (80-100); Mean Platelet Volume 9.5 fl (7.4-10.4); Monocytes Percent Auto 8.4 % (2.6-8.5); Neutrophils Absolute Auto 9.5 K/mm3 (1.3-6.7); Neutrophils Percent Auto 81.9 % (45.5-73.1); Platelet Count Result 168 k/mm3 (150-375); Red Blood Count 4.33 M/mm3 (4.6-6.20); Red Cell Distribution Width 13.9 % (11.5-14.5); White Blood Count 11.6 K/mm3 (4.5-10.0)
[2022-11-02 06:57] LABS: Alanine Aminotransferase 19 U/L (6-50); Albumin Level 3.2 g/dL (3.5-5.1); Alkaline Phosphatase 55 U/L (38-126); Anion Gap 4 mmol/L (8-16); Aspartate Amino Transferase 19 U/L (17-59); Bilirubin,Total 0.5 mg/dL (0.2-1.3); Blood Urea Nitrogen 15 mg/dL (9-20); Calcium 7.8 mg/dL (8.4-10.2); Carbon Dioxide 25 mmol/L (22-30); Chloride 102 mmol/L (98-107); Estimated CRCL calculation 88 ml/min; Estimated Glomerular Filt Rate > 60; Glucose 126 mg/dL (65-110); Lipase 24 U/L (23-300); Potassium 3.3 mmol/L (3.4-5.0); Sodium 131 mmol/L (137-145)
[2022-11-02] MEDS: AMIODARONE 360 MG/D5W 200 ML 360 MG/200 ML BAG 16.67 MG IV CONT (07:15)
--- NOTE | 2022-11-02 08:17 | PM.PNCARD ---
Progress Note: A&P Assessment and Plan (1) New onset a-fib: Code(s): I48.91 - Unspecified atrial fibrillation Status: Acute Assessment and Plan: New onset atrial fibrillation with rapid ventricular response in the setting of diverticulitis and pain secondary to this. No history of atrial fibrillation. He has converted to sinus rhythm on IV amiodarone. Discontinue IV amiodarone Start low dose metoprolol tartrate 25mg b.i.d (should be shifted to metoprolol succinate at discharge if BP tolerates this dose) Continue telemetry Echo is pending. Further recommendations to follow. [id number] score is 1 - watermelon inspector anticoagulation is not indicated. Can consider ASA 325 at discharge Recommend he follow up with his local rehabilitation aide/scheduler within 1-2 weeks of hospital discharge. Subjective Date/time seen: 11/02/22 08:17 Cardiology follow up for atrial fibrillation He is in sinus rhythm this morning, converted around 1630 yesterday afternoon and has remained in sinus rhythm. He is still complaining of 4/10 abdominal pain this morning. No chest pain, palpitations, or shortness of breath. Review of Systems Constitutional: Constitutional: Denies chills, Reports fatigue, Denies fever(s), Denies headache(s) and Denies malaise Eyes: Eyes: Denies change in vision ENT: Reports Normal hearing present, Denies dizziness, Denies headache(s), Denies hearing loss and Reports neck pain Cardiovascular: Cardiovascular: Denies chest pain, Denies chest pain at rest, Denies chest pain with activity, Denies syncope, Denies leg edema, Denies palpitations, Denies dyspnea and Denies dyspnea on exertion Respiratory: Respiratory: Reports cough, Denies dyspnea, Denies dyspnea on exertion and Denies wheezing Gastrointestinal: Gastrointestinal: Reports abdominal pain, Denies constipation, Reports heartburn, Denies diarrhea, Denies nausea and Denies vomiting Genitourinary: Genitourinary: Denies hematuria and Denies dysuria Musculoskeletal: Musculoskeletal: Reports back pain, Denies myalgias, Reports arthralgias, Denies muscle cramps and Reports neck pain Integumentary/Breasts: Skin/Breast: Denies wounds Neurologic: Reports Normal hearing present, Denies confusion, Denies dizziness, Denies syncope and Denies headache(s) Psychiatric: Psychiatric: Denies anxiety, Denies confusion and Denies depression Endocrine: Endocrine: Denies cold intolerance, Reports fatigue, Denies flushing, Denies heat intolerance and Denies palpitations Hematologic/Lymphatic: Hematologic/Lymphatic: Denies easy bleeding and Denies easy bruising Allergic/Immunologic: Allergic/Immunologic: Denies wheezing Exam Const: General: comfortable, no acute distress, alert and awake; No confusion Orientation/consciousness: patient oriented x3 and No confusion HENMT: Head: normal to inspection Eyes: General: appearance normal, both eyes and all related structures Pupils: Equal, round and reactive pupils present Neck: Neck: normal visual inspection, supple and no JVD Thyroid: thyroid normal Carotids: normal carotid upstroke and no bruits Resp: Effort & Inspection: normal respiratory effort Auscultation: clear to auscultation bilaterally, no crackles and no rales Cardio: Rate: regular rate Rhythm: regular rhythm Heart sounds: S1 normal heart sound present, S2 normal heart sound present and no murmurs GI: Auscultation: normal bowel sounds Skin: General skin exam: normal color Neuro: General: patient oriented x3 and No confusion Cranial nerves: Yes Equal, round and reactive pupils present and Yes Normal hearing present Extrem: General: normal to inspection Other: no edema Psych: Appearance: grossly normal Mental Status: mental status grossly normal Objective Data Vital Signs Vital Signs: Vital Signs - 24 hr 11/01/22 13:04 11/01/22 13:43 11/01/22 14:32 Temperature 36.1 C L Pulse Rate 96 180 H 174 H Respiratory Rate 16 Blood Pressure 91/62 L 101
--- NOTE | 2022-11-02 08:41 | PM.IMPN ---
Progress Note: A&P Assessment and Plan (1) New onset a-fib: Code(s): I48.91 - Unspecified atrial fibrillation Status: Acute Assessment and Plan: Now in normal sinus rhythm after amiodarone drip, metoprolol 25 mg started, Cardiology has signed off Echo was essentially normal (2) Diverticulitis of colon with perforation: Code(s): K57.20 - Diverticulitis of large intestine with perforation and abscess without bleeding Status: Acute Assessment and Plan: Clear liquid diet, advanced as tolerated, continue antibiotics, appreciate surgery management (3) Anxiety: Code(s): F41.9 - Anxiety disorder, unspecified Status: Acute Assessment and Plan: Continue home Xanax (4) Hyperlipidemia: Code(s): E78.5 - Hyperlipidemia, unspecified Status: Acute Assessment and Plan: Continue statin (5) Obstructive sleep apnea: Code(s): G47.33 - Obstructive sleep apnea (adult) (pediatric) Status: Acute Assessment and Plan: Continue with home settings for CPAP (6) BPH (benign prostatic hyperplasia): Code(s): N40.0 - Benign prostatic hyperplasia without lower urinary tract symptoms Status: Acute Assessment and Plan: Stable (7) Chronic back pain: Code(s): M54.9 - Dorsalgia, unspecified; G89.29 - Other chronic pain Status: Acute Assessment and Plan: Continue gabapentin (8) Headache: Code(s): R51.9 - Headache, unspecified Status: Acute Assessment and Plan: Continue home meds, stable Plan DVT prophylaxis with SCDs GI prophylaxis with PPI Code status full code Subjective Date/time seen: 11/02/22 08:41 Interval history: No overnight events noted. No chest pain or shortness of breath. No nausea, vomiting or diarrhea. No fevers or chills. He is complaining of some abdominal pain. He states he feels better than when he came in. Appetite decreased. No bowel movements, but he is passing gas. Review of Systems Review of Systems: 12 point review of systems was assessed and was negative except as noted in the HPI Exam Narrative: General: No acute distress, alert and oriented per baseline HEENT: Atraumatic, normocephalic, mucous membranes moist CV: Regular rate and rhythm, S1, S2 Lungs: Clear to auscultation bilaterally, no rales or crackles noted, no wheezes, good air entry Abdomen: Diffusely tender to palpation, no rebounding or guarding Extremities: Normal to inspection Skin: No rashes noted, no lesions or wounds seen Psych: Euthymic, normal affect Objective Data Vital Signs Vital Signs: Vital Signs - 24 hr 11/01/22 13:04 11/01/22 13:43 11/01/22 14:32 Temperature 97 F L Pulse Rate 96 180 H 174 H Respiratory Rate 16 Blood Pressure 91/62 L 101/88 Pulse Oximetry 97 Oxygen Delivery Room Air 11/01/22 14:35 11/01/22 16:00 11/01/22 16:00 Temperature 98.6 F Pulse Rate 179 H 124 H 99 Respiratory Rate 22 H Blood Pressure 102/84 Pulse Oximetry 95 Oxygen Delivery 11/01/22 18:00 11/01/22 20:37 11/01/22 20:00 Temperature 99.4 F Pulse Rate 91 103 H 78 Respiratory Rate 20 Blood Pressure 109/72 Pulse Oximetry 93 Oxygen Delivery 11/01/22 20:00 11/01/22 20:00 11/01/22 23:42 Temperature Pulse Rate 91 91 88 Respiratory Rate 20 18 Blood Pressure Pulse Oximetry 93 Oxygen Delivery Room Air 11/01/22 21:30 11/02/22 00:00 11/01/22 22:00 Temperature 98.5 F Pulse Rate 88 72 77 Respiratory Rate 16 Blood Pressure 106/73 Pulse Oximetry 95 95 Oxygen Delivery Autopap 11/02/22 00:00 11/02/22 00:00 11/02/22 01:33 Temperature Pulse Rate 72 72 70 Respiratory Rate 16 Blood Pressure Pulse Oximetry 95 Oxygen Delivery Autopap 11/02/22 01:34 11/02/22 01:34 11/02/22 04:00 Temperature 97.9 F Pulse Rate 74 70 68 Respiratory Rate 16 16 Blood Pressure 108/73 Pulse Oximetry 95 95 Oxygen Deliv
[2022-11-02] MEDS: PERFLUTREN LIPID MICROSPHERES 1.5 ML VIAL DILUTED TO 10 ML TOTAL VOLUME IV PUSH (08:46)
--- NOTE | 2022-11-02 09:02 | IVDEFINITY ---
Prior to administration of IV Definity the patient was educated on the risks and benefits of the imaging enhancing agent including potential adverse side effects. The patient verbalized understanding. Allergies were verified. No exclusion criteria were identified and at least one of the following inclusion criteria were met: 1) physician request, 2) patient technically difficult to image (per the [place] [employer] guidelines of two or more segments not discernable within the apical view), or 3) questionable left ventricular function. ?
[2022-11-02] MEDS: ROSUVASTATIN 10 MG TABLET 20 MG PO (09:17)
[2022-11-02] MEDS: METOPROLOL TARTRATE 25 MG TABLET PO ×2 (09:17→20:13)
[2022-11-02] MEDS: CHOLECALCIFEROL 1,000 UNITS TABLET 1000 UNITS PO (09:17)
[2022-11-02] MEDS: ASPIRIN 81 MG ENTERIC TABLET PO (09:17)
[2022-11-02] MEDS: PANTOPRAZOLE 40 MG TABLET PO (09:17)
[2022-11-02] MEDS: DULoxetine HCL 30 MG CAPSULE.DR PO (09:17)
[2022-11-02] MEDS: FLUTICASONE/SALMETEROL 115-21 MCG INHALER 1 PUFF 2 PUFF INHALATION ×2 (09:32→20:18)
[2022-11-02] MEDS: HYDROcodone/acetaminophen (*CRX) 5-325 MG TABLET 1 TAB PO ×2 (09:41→20:14)
[2022-11-02] MEDS: ACETAMINOPHEN/BUTALBITAL/CAFFEINE 325-50-40 MG TABLET (FIORICET) 1 TAB PO (10:14)
--- NOTE | 2022-11-02 14:52 | PM.PNGS ---
Progress Note: A&P Assessment and Plan (1) Diverticulitis of colon with perforation: Code(s): K57.20 - Diverticulitis of large intestine with perforation and abscess without bleeding Status: Acute Assessment and Plan: exam slightly improved, cont clears for now, cont abx (2) New onset a-fib: Code(s): I48.91 - Unspecified atrial fibrillation Status: Acute Assessment and Plan: improved, cont mgmt per cardiology Subjective Subjective Date/Time Seen: 11/02/22 14:52 still c some abd pain, [place] clears Review of Systems Review of Systems: All systems reviewed & are unremarkable except as noted in HPI and below Exam Const: General: cooperative, comfortable and no acute distress Resp: Auscultation: clear to auscultation bilaterally Cardio: Rate: regular rate Rhythm: regular rhythm GI: Inspection: normal to inspection and distended GI Palp: Yes abdominal tenderness, Yes Soft to palpation, Yes Tenderness to palpation present (GI), No Guarding due to palpation present (GI) and No Rigid due to palpation Objective Data Vital Signs Vital Signs: Vital Signs - 24 hr 11/01/22 16:00 11/01/22 16:00 11/01/22 18:00 Temperature 37.0 C Pulse Rate 124 H 99 91 Respiratory Rate 22 H Blood Pressure 102/84 Pulse Oximetry 95 Oxygen Delivery 11/01/22 20:37 11/01/22 20:00 11/01/22 20:00 Temperature 37.4 C Pulse Rate 103 H 78 91 Respiratory Rate 20 Blood Pressure 109/72 Pulse Oximetry 93 Oxygen Delivery 11/01/22 20:00 11/01/22 23:42 11/01/22 21:30 Temperature Pulse Rate 91 88 88 Respiratory Rate 20 18 Blood Pressure Pulse Oximetry 93 95 Oxygen Delivery Room Air Autopap 11/02/22 00:00 11/01/22 22:00 11/02/22 00:00 Temperature 36.9 C Pulse Rate 72 77 72 Respiratory Rate 16 Blood Pressure 106/73 Pulse Oximetry 95 Oxygen Delivery 11/02/22 00:00 11/02/22 01:33 11/02/22 01:34 Temperature Pulse Rate 72 70 74 Respiratory Rate 16 Blood Pressure Pulse Oximetry 95 Oxygen Delivery Autopap 11/02/22 01:34 11/02/22 04:00 11/02/22 06:00 Temperature 36.6 C Pulse Rate 70 68 65 Respiratory Rate 16 16 Blood Pressure 108/73 Pulse Oximetry 95 95 Oxygen Delivery Autopap 11/02/22 08:00 11/02/22 08:00 11/02/22 10:00 Temperature 36.5 C Pulse Rate 71 76 75 Respiratory Rate 18 Blood Pressure 109/70 Pulse Oximetry 93 Oxygen Delivery 11/02/22 10:07 11/02/22 11:06 11/02/22 12:00 Temperature 36.6 C Pulse Rate 73 65 65 Respiratory Rate 18 18 Blood Pressure 119/79 120/80 126/78 Pulse Oximetry 94 95 Oxygen Delivery 11/02/22 12:00 Temperature Pulse Rate 63 Respiratory Rate Blood Pressure Pulse Oximetry Oxygen Delivery Intake/Output Intake/Output: Intake & Output 10/30/22 10/31/22 11/01/22 11/02/22 23:59 23:59 23:59 23:59 Intake Total 2800 3200 3000 Output Total 400 800 Balance 2800 2800 2200 Meds/Results Medications: Active Medications Generic Name Dose Route Start Last Admin Trade Name Freq PRN Reason Stop Dose Admin Acetaminophen 650 mg 10/31/22 19:50 Acetaminophen 325 Mg Tablet PO QID PRN Pain RATED 1-3 Acetaminophen/Butalbital/Caffeine 1 tab 11/01/22 20:15 11/02/22 10:14 Acetaminophen/Butalbital/Caffeine 325-50-40 Mg Tablet (Fioricet) PO 1 tab DAILY PRN Administration Headache PAIN 6-10 Hydrocodone Bitart/Acetaminophen 1 tab 10/31/22 15:47 11/02/22 09:41 Hydrocodone/Acetaminophen (*Crx) 5-325 Mg Tablet PO 1 tab Q4H PRN Administration Pain Rated 4-6 Albuterol 2 puff 10/31/22 19:50 Albuterol Sulfate (*Sp) Aerosol 1 Puff INHALATION Q4H PRN Wheezing Alprazolam 0.25 mg 10/31/22 19:50 11/01/22 06:02 Alprazolam (*Crx) 0.25 Mg Tablet PO 0.25 mg DAILY PRN Administration anxiety Aspirin 81 mg 11/01/22 09:00 11/02/22 09:17 Aspirin 81 Mg Enteric Tablet PO 81 mg DAILY SC
[2022-11-02] MEDS: POTASSIUM CHLORIDE 20 MEQ TABLET 40 MEQ PO (15:22)
[2022-11-02] MEDS: polyethylene glycoL 3350 17 GM POWD.PACK PO (15:22)
--- NOTE | 2022-11-02 15:49 | PC.NURSE ---
Patient transported to [facility] with 2 RNs. Patient confirmed all belongings are with him. He personally notified his of transfer. All vital signs stable. Patient received by Allen GOLDBERG. No further questions at this time.
--- NOTE | 2022-11-02 17:00 | PC.NURSE ---
This patient, Jr Coelho, was received from [facility] on 11/02/22 at 1539. Patient/family oriented to unit policies and routines.
[2022-11-02] MEDS: KETOROLAC 15 MG/ML VIAL (*BKC) IV PUSH ×2 (19:01→23:57)
[2022-11-03] VITALS (15 sets, daily range): BP systolic 123–129; BP diastolic 73–85; PULSE 64–90; RESP 14–20; TEMP 35.8–37; O2SAT 93–99
[2022-11-03] MEDS: HYDROcodone/acetaminophen (*CRX) 5-325 MG TABLET 1 TAB PO ×3 (03:11→18:37)
[2022-11-03 04:46] LABS: Hematocrit 34.3 % (42.0-52.0); Hemoglobin 11.2 g/dL (14.0-18.0); Mean Corpuscular HGB Conc 32.7 g/dl (32-36); Mean Corpuscular Hemoglobin 28.2 pg (26-34); Mean Corpuscular Volume 86.4 fl (80-100); Mean Platelet Volume 9.7 fl (7.4-10.4); Platelet Count Result 169 k/mm3 (150-375); Red Blood Count 3.97 M/mm3 (4.6-6.20); Red Cell Distribution Width 13.4 % (11.5-14.5); White Blood Count 7.3 K/mm3 (4.5-10.0)
[2022-11-03 05:09] LABS: Anion Gap 1 mmol/L (8-16); Blood Urea Nitrogen 9 mg/dL (9-20); Carbon Dioxide 26 mmol/L (22-30); Chloride 106 mmol/L (98-107); Estimated CRCL calculation 78 ml/min; Estimated Glomerular Filt Rate > 60; Glucose 120 mg/dL (65-110); Potassium 3.6 mmol/L (3.4-5.0); Sodium 133 mmol/L (137-145)
[2022-11-03] MEDS: CHOLECALCIFEROL 1,000 UNITS TABLET 1000 UNITS PO (08:16)
[2022-11-03] MEDS: ASPIRIN 81 MG ENTERIC TABLET PO (08:16)
[2022-11-03] MEDS: PANTOPRAZOLE 40 MG TABLET PO ×2 (08:16→20:14)
[2022-11-03] MEDS: DULoxetine HCL 30 MG CAPSULE.DR PO (08:17)
[2022-11-03] MEDS: ROSUVASTATIN 10 MG TABLET 20 MG PO (08:17)
[2022-11-03] MEDS: METOPROLOL TARTRATE 25 MG TABLET PO ×2 (08:17→20:14)
[2022-11-03] MEDS: KETOROLAC 15 MG/ML VIAL (*BKC) IV PUSH ×3 (08:29→23:50)
[2022-11-03] MEDS: DEXTROSE 5%/0.9% SOD CHL 1,000 ML 100 ML IV CONT (09:14)
--- NOTE | 2022-11-03 10:04 | PM.IMPN ---
Progress Note: A&P Assessment and Plan (1) Diverticulitis of colon with perforation: Code(s): K57.20 - Diverticulitis of large intestine with perforation and abscess without bleeding Status: Acute Assessment and Plan: Per surgery management, clear liquid diet, advanced as tolerated, continue antibiotics, would anticipate transitioning to oral antibiotics and discharge home soon, discharge plan per primary surgery team In light of worsening abdominal pain today, would recommend CT scan to re-evaluate micro perforation previously noted (2) New onset a-fib: Code(s): I48.91 - Unspecified atrial fibrillation Status: Acute Assessment and Plan: Now in normal sinus rhythm after amiodarone drip, metoprolol tartrate 25 mg twice daily was started, Cardiology has signed off, recommendation is for metoprolol succinate 25 mg once daily and aspirin 325 mg daily at discharge Echo was essentially normal Will discontinue home propranolol that was previously taken as needed (3) Anxiety: Code(s): F41.9 - Anxiety disorder, unspecified Status: Acute Assessment and Plan: Continue home Xanax (4) Hyperlipidemia: Code(s): E78.5 - Hyperlipidemia, unspecified Status: Acute Assessment and Plan: Continue statin (5) Obstructive sleep apnea: Code(s): G47.33 - Obstructive sleep apnea (adult) (pediatric) Status: Acute Assessment and Plan: Continue with home settings for CPAP (6) BPH (benign prostatic hyperplasia): Code(s): N40.0 - Benign prostatic hyperplasia without lower urinary tract symptoms Status: Acute Assessment and Plan: Stable (7) Chronic back pain: Code(s): M54.9 - Dorsalgia, unspecified; G89.29 - Other chronic pain Status: Acute Assessment and Plan: Continue gabapentin (8) Headache: Code(s): R51.9 - Headache, unspecified Status: Acute Assessment and Plan: Continue home meds, stable (9) Hepatic lesion: Code(s): K76.9 - Liver disease, unspecified Status: Acute Assessment and Plan: Ultrasound of liver pending, LFTs within normal limits Of note, patient states he has a history of a peritoneal nodule near his liver that was removed and found to be benign in 2019 Plan DVT prophylaxis with SCDs GI prophylaxis with PPI Code status full code Subjective Date/time seen: 11/03/22 10:04 Interval history: No overnight events noted. No chest pain or shortness of breath. No nausea, vomiting or diarrhea. No fevers or chills. Patient continues to have abdominal pain today, somewhat worsened. He has had several bowel movements. Continues to pass gas. Still on clear liquid diet. No appetite. Also complaining of chronic dry cough, somewhat worsened with some chest discomfort with coughing. Review of Systems Review of Systems: 12 point review of systems was assessed and was negative except as noted in the HPI Exam Narrative: General: No acute distress, alert and oriented per baseline HEENT: Atraumatic, normocephalic, mucous membranes moist CV: Regular rate and rhythm, S1, S2 Lungs: Clear to auscultation bilaterally, no rales or crackles noted, no wheezes, good air entry Abdomen: Diffusely tender in the lower abdomen, no rebounding or guarding or peritoneal signs Extremities: Normal to inspection Skin: No rashes noted, no lesions or wounds seen Psych: Euthymic, normal affect Objective Data Vital Signs Vital Signs: Vital Signs - 24 hr 11/02/22 10:07 11/02/22 11:06 11/02/22 12:00 Temperature 97.8 F Pulse Rate 73 65 65 Respiratory Rate 18 18 Blood Pressure 119/79 120/80 126/78 Pulse Oximetry 94 95 Oxygen Delivery 11/02/22 12:00 11/02/22 16:00 11/02/22 16:00 Temperature 98 F Pulse Rate 63 70 70 Respiratory Rate 14 Blood Pressure 119/71 Pulse Oximetry 99 Oxygen Delivery 11/02/22 20:13 11/02/22 20:10 11/02/22 20:00 Temper
[2022-11-03] MEDS: FLUTICASONE/UMECLIDIN/VILANTER 100-62.5-25 MCG ELLIPTA 1 PUFF INHALATION (13:02)
--- NOTE | 2022-11-03 13:48 | PM.PNGS ---
Progress Note: A&P Assessment and Plan (1) Diverticulitis of colon with perforation: Code(s): K57.20 - Diverticulitis of large intestine with perforation and abscess without bleeding Status: Acute Assessment and Plan: Continues to slowly improve, WBC down to normal, afebrile. Will advance to full liquids. Continue IV antibiotics. Repeat labs in the am. (2) New onset a-fib: Code(s): I48.91 - Unspecified atrial fibrillation Status: Acute Assessment and Plan: Converted to sinus rhythm, off amiodarone drip and on a beta adelina. Cardiology signed off. Management per Hospitalist. Plan I have discussed the patient's case and plan of care with Dr. Mejía. Subjective Subjective Date/Time Seen: 11/03/22 13:48 Patient reports: no new complaints, feels better, pain is less, tolerating liquids well, flatus, bowel movement and afebrile Interval history: Patient seen and examined. He still has some lower abdominal pain, but feels this is slowly continuing to improve daily. He overall feels much better than when he was admitted. He has not required IV Dilaudid since yesterday and has been having stallings control with the IV Toradol and [place]. Denies any nausea or vomiting. Has had 3 BMs since getting the Miralax yesterday. Review of Systems Review of Systems: All systems reviewed & are unremarkable except as noted in HPI and below Exam Const: General: comfortable and no acute distress Orientation/consciousness: patient oriented x3 GI: Inspection: non-distended GI Palp: Yes Soft to palpation, Yes Tenderness to palpation present (GI) (RLQ, LLQ), No Guarding due to palpation present (GI) and No Rebound tenderness present Auscultation: normal bowel sounds Objective Data Vital Signs Vital Signs: Vital Signs - 24 hr 11/02/22 16:00 11/02/22 16:00 11/02/22 20:13 Temperature 98 F Pulse Rate 70 70 78 Respiratory Rate 14 Blood Pressure 119/71 Pulse Oximetry 99 Oxygen Delivery 11/02/22 20:10 11/02/22 20:00 11/02/22 22:00 Temperature Pulse Rate 78 67 Respiratory Rate Blood Pressure 117/79 Pulse Oximetry Oxygen Delivery 11/02/22 23:30 11/02/22 23:25 11/03/22 00:00 Temperature 97.8 F Pulse Rate 80 77 67 Respiratory Rate 18 Blood Pressure 113/82 Pulse Oximetry 99 98 Oxygen Delivery Autopap 11/03/22 02:00 11/03/22 02:22 11/03/22 03:19 Temperature 97.4 F L Pulse Rate 66 65 64 Respiratory Rate 18 Blood Pressure 123/73 Pulse Oximetry 96 99 Oxygen Delivery Autopap 11/03/22 04:00 11/03/22 07:55 11/03/22 08:17 Temperature 96.5 F L Pulse Rate 67 73 90 Respiratory Rate 20 Blood Pressure 126/85 Pulse Oximetry 93 Oxygen Delivery 11/03/22 08:00 11/03/22 08:00 Temperature Pulse Rate 75 75 Respiratory Rate 14 Blood Pressure Pulse Oximetry 99 Oxygen Delivery Room Air Intake/Output Intake/Output: Intake & Output 10/31/22 11/01/22 11/02/22 11/03/22 23:59 23:59 23:59 23:59 Intake Total 2800 3200 4340 1340 Output Total 400 1500 500 Balance 2800 2800 2840 840 Meds/Results Medications: Active Medications Generic Name Dose Route Start Last Admin Trade Name Freq PRN Reason Stop Dose Admin Acetaminophen 650 mg 10/31/22 19:50 Acetaminophen 325 Mg Tablet PO QID PRN Pain RATED 1-3 Acetaminophen/Butalbital/Caffeine 1 tab 11/01/22 20:15 11/02/22 10:14 Acetaminophen/Butalbital/Caffeine 325-50-40 Mg Tablet (Fioricet) PO 1 tab DAILY PRN Administration Headache PAIN 6-10 Hydrocodone Bitart/Acetaminophen 1 tab 10/31/22 15:47 11/03/22 09:16 Hydrocodone/Acetaminophen (*Crx) 5-325 Mg Tablet PO 1 tab Q4H PRN Administration Pain Rated 4-6 Albuterol 2 puff 10/31/22 19:50 Albuterol Sulfate (*Sp) Aerosol 1 Puff INHALATION Q4H PRN Wheezing Alprazolam 0.25 mg 10/31/22 19:50 11/01/22 06:02 Alprazolam (*Crx) 0.25 Mg Tablet PO 0.25 mg AMANDA
[2022-11-04] VITALS (12 sets, daily range): BP systolic 115–135; BP diastolic 65–80; PULSE 56–83; RESP 12–24; TEMP 36.2–36.5; O2SAT 94–98
[2022-11-04] MEDS: DEXTROSE 5%/0.9% SOD CHL 1,000 ML 50 ML IV CONT ×2 (02:00→21:24)
[2022-11-04] MEDS: HYDROcodone/acetaminophen (*CRX) 5-325 MG TABLET 1 TAB PO ×4 (02:39→23:11)
[2022-11-04] MEDS: HYDROmorphone HCL INJ (*CRX) 1 MG/ML SYR IV PUSH (02:46)
[2022-11-04 05:12] LABS: Hematocrit 37.5 % (42.0-52.0); Hemoglobin 12.4 g/dL (14.0-18.0); Mean Corpuscular HGB Conc 33.1 g/dl (32-36); Mean Corpuscular Hemoglobin 28.9 pg (26-34); Mean Corpuscular Volume 87.4 fl (80-100); Mean Platelet Volume 9.7 fl (7.4-10.4); Platelet Count Result 213 k/mm3 (150-375); Red Blood Count 4.29 M/mm3 (4.6-6.20); Red Cell Distribution Width 13.7 % (11.5-14.5)
[2022-11-04 05:31] LABS: Anion Gap 3 mmol/L (8-16); Blood Urea Nitrogen 9 mg/dL (9-20); Calcium 8.1 mg/dL (8.4-10.2); Carbon Dioxide 25 mmol/L (22-30); Chloride 112 mmol/L (98-107); Estimated CRCL calculation 78 ml/min; Estimated Glomerular Filt Rate > 60; Glucose 99 mg/dL (65-110); Potassium 3.7 mmol/L (3.4-5.0); Sodium 140 mmol/L (137-145)
[2022-11-04] MEDS: ACETAMINOPHEN/BUTALBITAL/CAFFEINE 325-50-40 MG TABLET (FIORICET) 1 TAB PO (08:24)
[2022-11-04] MEDS: DULoxetine HCL 30 MG CAPSULE.DR PO (08:25)
[2022-11-04] MEDS: METOPROLOL TARTRATE 25 MG TABLET PO ×2 (08:25→21:25)
[2022-11-04] MEDS: ROSUVASTATIN 10 MG TABLET 20 MG PO (08:25)
[2022-11-04] MEDS: CHOLECALCIFEROL 1,000 UNITS TABLET 1000 UNITS PO (08:25)
[2022-11-04] MEDS: PANTOPRAZOLE 40 MG TABLET PO ×2 (08:25→21:27)
[2022-11-04] MEDS: ASPIRIN 81 MG ENTERIC TABLET PO (08:26)
[2022-11-04] MEDS: FLUTICASONE/UMECLIDIN/VILANTER 100-62.5-25 MCG ELLIPTA 1 PUFF INHALATION (09:09)
--- NOTE | 2022-11-04 09:59 | PM.IMPN ---
Progress Note: A&P Assessment and Plan (1) Diverticulitis of colon with perforation: Code(s): K57.20 - Diverticulitis of large intestine with perforation and abscess without bleeding Status: Acute Assessment and Plan: Per surgery management, advanced as tolerated, continue antibiotics, would anticipate transitioning to oral antibiotics and discharge home soon, discharge plan per primary surgery team CT abd + pelvis ordered and pending (2) New onset a-fib: Code(s): I48.91 - Unspecified atrial fibrillation Status: Acute Assessment and Plan: Now in normal sinus rhythm after amiodarone drip, metoprolol tartrate 25 mg twice daily was started, Cardiology has signed off, recommendation is for metoprolol succinate 25 mg once daily and aspirin 325 mg daily at discharge Echo was essentially normal Will discontinue home propranolol that was previously taken as needed (3) Anxiety: Code(s): F41.9 - Anxiety disorder, unspecified Status: Acute Assessment and Plan: Continue home Xanax (4) Hyperlipidemia: Code(s): E78.5 - Hyperlipidemia, unspecified Status: Acute Assessment and Plan: Continue statin (5) Obstructive sleep apnea: Code(s): G47.33 - Obstructive sleep apnea (adult) (pediatric) Status: Acute Assessment and Plan: Continue with home settings for CPAP (6) BPH (benign prostatic hyperplasia): Code(s): N40.0 - Benign prostatic hyperplasia without lower urinary tract symptoms Status: Acute Assessment and Plan: Stable (7) Chronic back pain: Code(s): M54.9 - Dorsalgia, unspecified; G89.29 - Other chronic pain Status: Acute Assessment and Plan: Continue gabapentin (8) Headache: Code(s): R51.9 - Headache, unspecified Status: Acute Assessment and Plan: Continue home meds, stable (9) Hepatic lesion: Code(s): K76.9 - Liver disease, unspecified Status: Acute Assessment and Plan: Ultrasound of liver showing two hemangiomas, LFTs within normal limits, follow up outpatient for further concerns Gallbludder sludge noted, no signs of GB disease, would consider HIDA scan in the future if patient became symptomatic Of note, patient states he has a history of multiple hemangiomas and peritoneal 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 He states that it was associated with a dry cough upon sitting up or with minimal exertion. It was constant, did not radiate and was dull and burning. Laying on his right side seemed to alleviate it a bit. He denies any associated NVD. Abdominal pain still present and occasionally quite severe, although improved from admission. +BM, + flatus Review of Systems Review of Systems: 12 point review of systems was assessed and was negative except as noted in the HPI Exam Narrative: General: No acute distress, alert and oriented per baseline HEENT: Atraumatic, normocephalic, mucous membranes moist CV: Regular rate and rhythm, S1, S2 Lungs: crackles noted in LLL, diminished throughout, no wheeze or rhonchi Abdomen: Diffusely tender in the lower abdomen, no rebounding or guarding or peritoneal signs, +distended Extremities: Normal to inspection Skin: No rashes noted, no lesions or wounds seen Psych: Euthymic, normal affect Objective Data Vital Signs Vital Signs: Vital Signs - 24 hr 11/03/22
--- NOTE | 2022-11-04 14:08 | ECG_ITS ---
Measurements Intervals [place] Rate: 66 P: 62 AK: 124 QRS: -9 QRSD: 142 T: 0 QT: 414 QTc: 434 Interpretive Statements SINUS RHYTHM RIGHT BUNDLE BRANCH BLOCK BASELINE ARTIFACT- I, II, III, V2-V3 ABNORMAL ECG COMPARED TO ECG 11/01/2022 15:19:54 NO SIGNIFICANT CHANGES Electronically Signed On 11-04-2022 17:29:51 [employer] by Shakeel Patel D.O.
[2022-11-04 14:40] LABS: Troponin I < 0.012 ng/mL (0.000-0.034)
--- NOTE | 2022-11-04 14:44 | PC.NURSE ---
This patient, Jr Coelho, was transferred to [facility] on 11/04/22 at 1444. Personal belongings sent with patient. Report given to DANIA GOLDBERG. Appropriate documentation sent with patient.
--- NOTE | 2022-11-04 15:14 | PM.PNGS ---
Progress Note: A&P Assessment and Plan (1) Diverticulitis of colon with perforation: Code(s): K57.20 - Diverticulitis of large intestine with perforation and abscess without bleeding Status: Acute Assessment and Plan: exam benign, [place] diet, +bowel fxn, cont abx (2) Chest pain: Code(s): R07.9 - Chest pain, unspecified Status: Acute Assessment and Plan: cont workup per medicine and cardiology Subjective Subjective Date/Time Seen: 11/04/22 15:14 feels better overall, [place] low fiber diet, abd pain much improved, c/o chest pain Review of Systems Review of Systems: All systems reviewed & are unremarkable except as noted in HPI and below Exam Const: General: cooperative, comfortable and no acute distress Resp: Auscultation: crackles and diminished lung sounds Cardio: Rate: regular rate Rhythm: regular rhythm GI: Inspection: normal to inspection and non-distended GI Palp: Yes abdominal tenderness, Yes Soft to palpation, Yes Tenderness to palpation present (GI), No Guarding due to palpation present (GI) and No Rigid due to palpation Objective Data Vital Signs Vital Signs: Vital Signs - 24 hr 11/03/22 16:26 11/03/22 16:00 11/03/22 20:14 Temperature 37.0 C Pulse Rate 72 64 70 Respiratory Rate 20 Blood Pressure 126/80 Pulse Oximetry 95 Oxygen Delivery 11/03/22 20:27 11/03/22 20:00 11/03/22 22:08 Temperature 36.3 C L Pulse Rate 67 66 68 Respiratory Rate 20 Blood Pressure 129/77 Pulse Oximetry 98 94 Oxygen Delivery Autopap 11/04/22 00:00 11/04/22 00:00 11/04/22 02:19 Temperature Pulse Rate 83 83 71 Respiratory Rate Blood Pressure Pulse Oximetry 98 Oxygen Delivery Autopap 11/04/22 03:26 11/04/22 04:00 11/04/22 08:00 Temperature 36.2 C L Pulse Rate 74 59 L 70 Respiratory Rate 24 H Blood Pressure 135/80 Pulse Oximetry 96 95 Oxygen Delivery Autopap 11/04/22 08:25 11/04/22 08:00 11/04/22 09:09 Temperature Pulse Rate 75 75 Respiratory Rate 20 Blood Pressure Pulse Oximetry Oxygen Delivery Room Air 11/04/22 08:00 11/04/22 12:00 Temperature Pulse Rate 71 67 Respiratory Rate Blood Pressure Pulse Oximetry Oxygen Delivery Intake/Output Intake/Output: Intake & Output 11/01/22 11/02/22 11/03/22 11/04/22 23:59 23:59 23:59 23:59 Intake Total 3200 4340 3120 1570 Output Total 400 1500 500 600 Balance 2800 2840 2620 970 Meds/Results Medications: Active Medications Generic Name Dose Route Start Last Admin Trade Name Freq PRN Reason Stop Dose Admin Acetaminophen 650 mg 10/31/22 19:50 Acetaminophen 325 Mg Tablet PO QID PRN Pain RATED 1-3 Acetaminophen/Butalbital/Caffeine 1 tab 11/01/22 20:15 11/04/22 08:24 Acetaminophen/Butalbital/Caffeine 325-50-40 Mg Tablet (Fioricet) PO 1 tab DAILY PRN Administration Headache PAIN 6-10 Hydrocodone Bitart/Acetaminophen 1 tab 10/31/22 15:47 11/04/22 11:43 Hydrocodone/Acetaminophen (*Crx) 5-325 Mg Tablet PO 1 tab Q4H PRN Administration Pain Rated 4-6 Albuterol 2 puff 10/31/22 19:50 Albuterol Sulfate (*Sp) Aerosol 1 Puff INHALATION Q4H PRN Wheezing Alprazolam 0.25 mg 10/31/22 19:50 11/01/22 06:02 Alprazolam (*Crx) 0.25 Mg Tablet PO 0.25 mg DAILY PRN Administration anxiety Aspirin 81 mg 11/01/22 09:00 11/04/22 08:26 Aspirin 81 Mg Enteric Tablet PO 81 mg DAILY KEAGAN Administration Aspirin 325 mg 10/31/22 19:50 Aspirin 325 Mg Tablet PO BID PRN Headache PAIN 1-5 Duloxetine HCl 30 mg 11/01/22 09:00 11/04/22 08:25 Duloxetine Hcl 30 Mg Capsule.Dr PO 30 mg DAILY KEAGAN Administration Fluticasone/Umeclidinium/Vilanterol 1 puff 11/03/22 11:40 11/04/22 09:09 Fluticasone/Umeclidin/Vilanter 100-62.5-25 Mcg Ellipta INHALATION 1 puff DAILYRT KEAGAN Administration Dextrose/Sodium Chloride 1,000 mls @ 50 mls/hr 10/31/22 10:55
[2022-11-04] MEDS: SIMETHICONE 125 MG CHEW TAB PO ×2 (16:11→21:27)
[2022-11-04] MEDS: MORPHINE SULFATE (*CRX) 2 MG/ML INJ IV PUSH (16:15)
[2022-11-04] MEDS: KETOROLAC 15 MG/ML VIAL (*BKC) IV PUSH (16:48)
--- NOTE | 2022-11-04 18:14 | PC.NURSE ---
Called Dr Schaefer in regards to patients pain medication. She changed the order for pain medication and asked for me to call General Surgery to update them on the CT scan. Called and spoke with Dr Mejía @ 1815 and updated him on the CT scan and the need for pain medication alteration.
[2022-11-04] MEDS: FUROSEMIDE INJ 40 MG/4 ML VIAL IV PUSH (21:26)
[2022-11-04] MEDS: HYDROmorphone HCL INJ (*CRX) 1 MG/ML SYR 0.5 MG IV PUSH (21:30)
[2022-11-05] VITALS (12 sets, daily range): BP systolic 116–146; BP diastolic 68–90; PULSE 53–77; RESP 16–18; TEMP 36.1–36.6; O2SAT 94–96
[2022-11-05] MEDS: WATER FOR IRRIGATION, STERILE 1,000 ML BOTTLE 1000 ML (00:13)
[2022-11-05] MEDS: HYDROcodone/acetaminophen (*CRX) 5-325 MG TABLET 1 TAB PO ×4 (03:43→19:56)
[2022-11-05] MEDS: ACETAMINOPHEN/BUTALBITAL/CAFFEINE 325-50-40 MG TABLET (FIORICET) 1 TAB PO ×2 (07:09→17:26)
[2022-11-05] MEDS: FLUTICASONE/UMECLIDIN/VILANTER 100-62.5-25 MCG ELLIPTA 1 PUFF INHALATION (09:05)
[2022-11-05] MEDS: CHOLECALCIFEROL 1,000 UNITS TABLET 1000 UNITS PO (09:20)
[2022-11-05] MEDS: PANTOPRAZOLE 40 MG TABLET PO ×2 (09:20→19:56)
[2022-11-05] MEDS: SIMETHICONE 125 MG CHEW TAB PO ×4 (09:20→19:56)
[2022-11-05] MEDS: ASPIRIN 81 MG ENTERIC TABLET PO (09:20)
[2022-11-05] MEDS: ROSUVASTATIN 10 MG TABLET 20 MG PO (09:20)
[2022-11-05] MEDS: DULoxetine HCL 30 MG CAPSULE.DR PO (09:20)
[2022-11-05] MEDS: METOPROLOL TARTRATE 25 MG TABLET PO ×2 (09:20→19:56)
[2022-11-05] MEDS: FUROSEMIDE INJ 40 MG/4 ML VIAL IV PUSH (09:20)
[2022-11-05] MEDS: KETOROLAC 15 MG/ML VIAL (*BKC) IV PUSH ×2 (09:22→15:28)
--- NOTE | 2022-11-05 10:31 | PM.IMPN ---
Progress Note: A&P Assessment and Plan (1) Diverticulitis of colon with perforation: Code(s): K57.20 - Diverticulitis of large intestine with perforation and abscess without bleeding Status: Acute Assessment and Plan: Per surgery management, continue antibiotics, pain worsening, unable to tolerate po without pain CT abd + pelvis showed cont microperforation with worsened scattered abscesses, de-escalated to CLD, reassess Will try to advance diet again at dinner, assess response (2) New onset a-fib: Code(s): I48.91 - Unspecified atrial fibrillation Status: Acute Assessment and Plan: Now in normal sinus rhythm after amiodarone drip, metoprolol tartrate 25 mg twice daily was started, Cardiology has signed off, recommendation is for metoprolol succinate 25 mg once daily and aspirin 325 mg daily at discharge Echo was essentially normal Will discontinue home propranolol that was previously taken as needed (3) Anxiety: Code(s): F41.9 - Anxiety disorder, unspecified Status: Acute Assessment and Plan: Continue home Xanax (4) Hyperlipidemia: Code(s): E78.5 - Hyperlipidemia, unspecified Status: Acute Assessment and Plan: Continue statin (5) Obstructive sleep apnea: Code(s): G47.33 - Obstructive sleep apnea (adult) (pediatric) Status: Acute Assessment and Plan: Continue with home settings for CPAP (6) BPH (benign prostatic hyperplasia): Code(s): N40.0 - Benign prostatic hyperplasia without lower urinary tract symptoms Status: Acute Assessment and Plan: Stable (7) Chronic back pain: Code(s): M54.9 - Dorsalgia, unspecified; G89.29 - Other chronic pain Status: Acute Assessment and Plan: Continue gabapentin (8) Headache: Code(s): R51.9 - Headache, unspecified Status: Acute Assessment and Plan: Continue home meds, stable (9) Hepatic lesion: Code(s): K76.9 - Liver disease, unspecified Status: Acute Assessment and Plan: Ultrasound of liver showing two hemangiomas, LFTs within normal limits, follow up outpatient for further concerns Gallbludder sludge noted, no signs of GB disease, would consider HIDA scan in the future if patient became symptomatic Of note, patient states he has a history of multiple hemangiomas and peritoneal nodules near his liver that wer removed and found to be benign in 2019 (10) Chest pain: Code(s): R07.9 - Chest pain, unspecified Status: Acute Assessment and Plan: likely not cardiac, suspect pleuritic in nature from pleural effusions, cont lasix and monitor response cont trelegy for COPD CTA neg for PE, did show pleural effusions, given Lasix x2, check chest x-ray tomorrow Echo essentially WNL, mild valvular disease, EF 60-65%, no diastolic dysfunction, no pericardial effusion Plan DVT prophylaxis with SCDs GI prophylaxis with PPI Code status full code Subjective Date/time seen: 11/05/22 10:31 Interval history: No overnight events noted. No chest pain or shortness of breath. No nausea, vomiting or diarrhea. No fevers or chills. Cough much improved. Abdominal pain seems improved as well. He is complaining of a migraine/headache and he would like his home Fioricet for it. Review of Systems Review of Systems: 12 point review of systems was assessed and was negative except as noted in the HPI Exam Narrative: General: No acute distress, alert and oriented per baseline HEENT: Atraumatic, normocephalic, mucous membranes moist CV: Regular rate and rhythm, S1, S2 Lungs: Clear to auscultation bilaterally, no crackles Abdomen: Soft, somewhat tender, nondistended today Extremities: Normal to inspection Skin: No rashes noted, no lesions or wounds seen Psych: Euthymic, normal affect Objective Data Vital Signs Vital Signs: Vital Signs - 24 hr 11/04
[2022-11-05] MEDS: ASPIRIN 325 MG TABLET PO (12:02)
--- NOTE | 2022-11-05 12:35 | PM.PNGS ---
Progress Note: A&P Assessment and Plan (1) Diverticulitis of colon with perforation: Code(s): K57.20 - Diverticulitis of large intestine with perforation and abscess without bleeding Status: Acute Assessment and Plan: CT reviewed c radiologist, largely unchanged, small abscesses likely not ammendable to perc drainage, cont IV abx, exam benign this am, will ADAT Subjective Subjective Date/Time Seen: 11/05/22 12:35 severe episode of abd pain last night, now resolved Review of Systems Review of Systems: All systems reviewed & are unremarkable except as noted in HPI and below Exam Const: General: cooperative, comfortable and no acute distress Resp: Auscultation: clear to auscultation bilaterally Cardio: Rate: regular rate Rhythm: regular rhythm GI: Inspection: normal to inspection and non-distended GI Palp: No abdominal tenderness, Yes Soft to palpation, No Tenderness to palpation present (GI), No Guarding due to palpation present (GI) and No Rigid due to palpation Objective Data Vital Signs Vital Signs: Vital Signs - 24 hr 11/04/22 16:00 11/04/22 21:25 11/04/22 20:00 Temperature 36.5 C Pulse Rate 56 L 66 65 Respiratory Rate 12 Blood Pressure 115/65 Pulse Oximetry 94 Oxygen Delivery 11/05/22 00:00 11/05/22 04:00 11/05/22 06:00 Temperature 36.2 C L Pulse Rate 58 L 53 L 64 Respiratory Rate 18 Blood Pressure 146/90 H Pulse Oximetry 94 Oxygen Delivery 11/05/22 09:20 11/05/22 09:10 11/05/22 08:00 Temperature Pulse Rate 68 61 Respiratory Rate Blood Pressure Pulse Oximetry Oxygen Delivery Room Air Intake/Output Intake/Output: Intake & Output 11/02/22 11/03/22 11/04/22 11/05/22 23:59 23:59 23:59 23:59 Intake Total 4340 3120 3170 168 Output Total 1500 591 833 6923 Balance 2840 6803 9016 -7638 Meds/Results Medications: Active Medications Generic Name Dose Route Start Last Admin Trade Name Freq PRN Reason Stop Dose Admin Acetaminophen 650 mg 10/31/22 19:50 Acetaminophen 325 Mg Tablet PO QID PRN Pain RATED 1-3 Acetaminophen/Butalbital/Caffeine 1 tab 11/01/22 20:15 11/05/22 07:09 Acetaminophen/Butalbital/Caffeine 325-50-40 Mg Tablet (Fioricet) PO 1 tab DAILY PRN Administration Headache PAIN 6-10 Hydrocodone Bitart/Acetaminophen 1 tab 10/31/22 15:47 11/05/22 09:19 Hydrocodone/Acetaminophen (*Crx) 5-325 Mg Tablet PO 1 tab Q4H PRN Administration Pain Rated 4-6 Albuterol 2 puff 10/31/22 19:50 Albuterol Sulfate (*Sp) Aerosol 1 Puff INHALATION Q4H PRN Wheezing Alprazolam 0.25 mg 10/31/22 19:50 11/01/22 06:02 Alprazolam (*Crx) 0.25 Mg Tablet PO 0.25 mg DAILY PRN Administration anxiety Aspirin 81 mg 11/01/22 09:00 11/05/22 09:20 Aspirin 81 Mg Enteric Tablet PO 81 mg DAILY KEAGAN Administration Aspirin 325 mg 10/31/22 19:50 11/05/22 12:02 Aspirin 325 Mg Tablet PO 325 mg BID PRN Administration Headache PAIN 1-5 Duloxetine HCl 30 mg 11/01/22 09:00 11/05/22 09:20 Duloxetine Hcl 30 Mg Capsule.Dr PO 30 mg DAILY KEAGAN Administration Fluticasone/Umeclidinium/Vilanterol 1 puff 11/03/22 11:40 11/05/22 09:05 Fluticasone/Umeclidin/Vilanter 100-62.5-25 Mcg Ellipta INHALATION 1 puff DAILYRT KEAGAN Administration Furosemide 40 mg 11/04/22 18:35 11/05/22 09:20 Furosemide Inj 40 Mg/4 Ml Vial IV PUSH 40 mg DAILY KEAGAN Administration Hydromorphone HCl 0.5 mg 11/04/22 17:59 11/04/22 21:30 Hydromorphone Hcl Inj (*Crx) 1 Mg/Ml Syr IV PUSH 0.5 mg Q2H PRN Administration Pain Rated 7-10 Dextrose/Sodium Chloride 1,000 mls @ 50 mls/hr 10/31/22 10:55 11/04/22 21:24 Dextrose 5% Sodium Chloride 0.9% IV CONT 50 mls/hr .Q20H KEAGAN Administration Piperacillin/Tazobactam/Dextrose 3.375 gm in 50 mls @ 100 mls/hr 10/31/22 18:00 11/05/22 11:54 Zosyn 3.375 Gm/D5w 50ml Pm IVPB 100 mls/hr Q6HR KEAGAN Adminis
[2022-11-05] MEDS: DEXTROSE 5%/0.9% SOD CHL 1,000 ML 50 ML IV CONT (21:02)
[2022-11-06] VITALS (12 sets, daily range): BP systolic 121–137; BP diastolic 74–81; PULSE 56–81; RESP 16–20; TEMP 36.2–36.8; O2SAT 94–97
[2022-11-06] MEDS: HYDROcodone/acetaminophen (*CRX) 5-325 MG TABLET 1 TAB PO ×4 (04:18→22:27)
[2022-11-06 06:01] LABS: Hematocrit 36.3 % (42.0-52.0); Hemoglobin 12.1 g/dL (14.0-18.0); Mean Corpuscular HGB Conc 33.3 g/dl (32-36); Mean Corpuscular Hemoglobin 28.5 pg (26-34); Mean Corpuscular Volume 85.4 fl (80-100); Mean Platelet Volume 9.3 fl (7.4-10.4); Platelet Count Result 241 k/mm3 (150-375); Red Blood Count 4.25 M/mm3 (4.6-6.20); Red Cell Distribution Width 13.2 % (11.5-14.5); White Blood Count 6.9 K/mm3 (4.5-10.0)
[2022-11-06] MEDS: FLUTICASONE/UMECLIDIN/VILANTER 100-62.5-25 MCG ELLIPTA 1 PUFF INHALATION (07:35)
[2022-11-06] MEDS: SIMETHICONE 125 MG CHEW TAB PO ×4 (08:22→20:09)
[2022-11-06] MEDS: METOPROLOL TARTRATE 25 MG TABLET PO ×2 (08:22→20:08)
[2022-11-06] MEDS: ASPIRIN 325 MG TABLET PO (08:22)
[2022-11-06] MEDS: CHOLECALCIFEROL 1,000 UNITS TABLET 1000 UNITS PO (08:22)
[2022-11-06] MEDS: ASPIRIN 81 MG ENTERIC TABLET PO (08:22)
[2022-11-06] MEDS: PANTOPRAZOLE 40 MG TABLET PO ×2 (08:23→20:08)
[2022-11-06] MEDS: ROSUVASTATIN 10 MG TABLET 20 MG PO (08:23)
[2022-11-06] MEDS: DULoxetine HCL 30 MG CAPSULE.DR PO (08:23)
[2022-11-06] MEDS: FUROSEMIDE INJ 40 MG/4 ML VIAL IV PUSH ×3 (08:23→20:08)
[2022-11-06] MEDS: ACETAMINOPHEN/BUTALBITAL/CAFFEINE 325-50-40 MG TABLET (FIORICET) 1 TAB PO (10:49)
[2022-11-06] MEDS: DEXTROSE 5%/0.9% SOD CHL 1,000 ML 50 ML IV CONT (10:52)
--- NOTE | 2022-11-06 11:56 | PM.IMPN ---
Progress Note: A&P Assessment and Plan (1) Diverticulitis of colon with perforation: Code(s): K57.20 - Diverticulitis of large intestine with perforation and abscess without bleeding Status: Acute Assessment and Plan: Per surgery management, continue antibiotics, pain worsening, unable to tolerate po without pain CT abd + pelvis showed cont microperforation with worsened scattered abscesses, de-escalated to CLD, reassess Diet advancing as tolerated, still with some worsened pain with p.o. intake, slowly advanced and monitor Appreciate general surgery consultation (2) New onset a-fib: Code(s): I48.91 - Unspecified atrial fibrillation Status: Acute Assessment and Plan: Now in normal sinus rhythm after amiodarone drip, metoprolol tartrate 25 mg twice daily was started, Cardiology has signed off, recommendation is for metoprolol succinate 25 mg once daily and aspirin 325 mg daily at discharge Echo was essentially normal Will discontinue home propranolol that was previously taken as needed (3) Anxiety: Code(s): F41.9 - Anxiety disorder, unspecified Status: Acute Assessment and Plan: Continue home Xanax (4) Hyperlipidemia: Code(s): E78.5 - Hyperlipidemia, unspecified Status: Acute Assessment and Plan: Continue statin (5) Obstructive sleep apnea: Code(s): G47.33 - Obstructive sleep apnea (adult) (pediatric) Status: Acute Assessment and Plan: Continue with home settings for CPAP (6) BPH (benign prostatic hyperplasia): Code(s): N40.0 - Benign prostatic hyperplasia without lower urinary tract symptoms Status: Acute Assessment and Plan: Stable (7) Chronic back pain: Code(s): M54.9 - Dorsalgia, unspecified; G89.29 - Other chronic pain Status: Acute Assessment and Plan: Continue gabapentin (8) Headache: Code(s): R51.9 - Headache, unspecified Status: Acute Assessment and Plan: Continue home meds, stable (9) Hepatic lesion: Code(s): K76.9 - Liver disease, unspecified Status: Acute Assessment and Plan: Ultrasound of liver showing two hemangiomas, LFTs within normal limits, follow up outpatient for further concerns Gallbludder sludge noted, no signs of GB disease, would consider HIDA scan in the future if patient became symptomatic Of note, patient states he has a history of multiple hemangiomas and peritoneal nodules near his liver that wer removed and found to be benign in 2019 (10) Chest pain: Code(s): R07.9 - Chest pain, unspecified Status: Acute Assessment and Plan: Resolved at this time, likely not cardiac, suspect pleuritic in nature from pleural effusions, cont lasix and monitor response cont trelegy for COPD CTA neg for PE, did show pleural effusions, given Lasix x2, check chest x-ray tomorrow Echo essentially WNL, mild valvular disease, EF 60-65%, no diastolic dysfunction, no pericardial effusion (11) Pleural effusion: Code(s): J90 - Pleural effusion, not elsewhere classified Status: Acute Assessment and Plan: Currently receiving Lasix, check chest x-ray again tomorrow Plan DVT prophylaxis with SCDs GI prophylaxis with PPI Code status full code Subjective Date/time seen: 11/06/22 11:56 Interval history: No overnight events noted. No chest pain or shortness of breath. No nausea, vomiting, a little bit of diarrhea, no blood. No fevers or chills. Cough much improved. Chest discomfort completely resolved. Still with worsening abdominal pain with p.o. intake. Review of Systems Review of Systems: 12 point review of systems was assessed and was negative except as noted in the HPI Exam Narrative: General: No acute distress, alert and oriented per baseline HEENT: Atraumatic, normocephalic, mucous membranes moist CV: Regular rate and rhythm, S1, S2
--- NOTE | 2022-11-06 12:19 | PM.PNGS ---
Progress Note: A&P Assessment and Plan (1) Diverticulitis of colon with perforation: Code(s): K57.20 - Diverticulitis of large intestine with perforation and abscess without bleeding Status: Acute Assessment and Plan: slowly improving, cont low fat diet, likely home tomorrow Subjective Subjective Date/Time Seen: 11/06/22 12:19 feels better today, still c/o lower abd pain 10, [place] low fiber diet Review of Systems Review of Systems: All systems reviewed & are unremarkable except as noted in HPI and below Exam Const: General: cooperative, comfortable and no acute distress Resp: Auscultation: clear to auscultation bilaterally Cardio: Rate: regular rate Rhythm: regular rhythm GI: Inspection: normal to inspection and non-distended GI Palp: Yes abdominal tenderness, Yes Soft to palpation, Yes Tenderness to palpation present (GI), No Guarding due to palpation present (GI) and No Rigid due to palpation Objective Data Vital Signs Vital Signs: Vital Signs - 24 hr 11/05/22 14:00 11/05/22 16:00 11/05/22 19:42 Temperature 36.6 C Pulse Rate 58 L 63 63 Respiratory Rate 16 16 Blood Pressure 143/81 H Pulse Oximetry 96 96 Oxygen Delivery Room Air 11/05/22 19:56 11/05/22 20:00 11/05/22 22:00 Temperature 36.1 C L Pulse Rate 60 77 59 L Respiratory Rate 18 Blood Pressure 116/68 Pulse Oximetry 96 Oxygen Delivery 11/06/22 00:00 11/06/22 04:00 11/06/22 06:00 Temperature 36.8 C Pulse Rate 59 L 57 L 60 Respiratory Rate 16 Blood Pressure 137/74 Pulse Oximetry 94 Oxygen Delivery 11/06/22 08:07 11/06/22 08:22 Temperature Pulse Rate 81 80 Respiratory Rate 18 Blood Pressure Pulse Oximetry Oxygen Delivery Intake/Output Intake/Output: Intake & Output 11/03/22 11/04/22 11/05/22 11/06/22 23:59 23:59 23:59 23:59 Intake Total 3120 3170 2007 1514 Output Total 409 355 0266 1000 Balance 6643 2036 -0211 515 Meds/Results Medications: Active Medications Generic Name Dose Route Start Last Admin Trade Name Freq PRN Reason Stop Dose Admin Acetaminophen 650 mg 10/31/22 19:50 Acetaminophen 325 Mg Tablet PO QID PRN Pain RATED 1-3 Acetaminophen/Butalbital/Caffeine 1 tab 11/05/22 15:21 11/06/22 10:49 Acetaminophen/Butalbital/Caffeine 325-50-40 Mg Tablet (Fioricet) PO 1 tab Q4H PRN Administration Headache PAIN 6-10 Hydrocodone Bitart/Acetaminophen 1 tab 10/31/22 15:47 11/06/22 08:20 Hydrocodone/Acetaminophen (*Crx) 5-325 Mg Tablet PO 1 tab Q4H PRN Administration Pain Rated 4-6 Albuterol 2 puff 10/31/22 19:50 Albuterol Sulfate (*Sp) Aerosol 1 Puff INHALATION Q4H PRN Wheezing Alprazolam 0.25 mg 10/31/22 19:50 11/01/22 06:02 Alprazolam (*Crx) 0.25 Mg Tablet PO 0.25 mg DAILY PRN Administration anxiety Aspirin 81 mg 11/01/22 09:00 11/06/22 08:22 Aspirin 81 Mg Enteric Tablet PO 81 mg DAILY KEAGAN Administration Aspirin 325 mg 10/31/22 19:50 11/06/22 08:22 Aspirin 325 Mg Tablet PO 325 mg BID PRN Administration Headache PAIN 1-5 Duloxetine HCl 30 mg 11/01/22 09:00 11/06/22 08:23 Duloxetine Hcl 30 Mg Capsule.Dr PO 30 mg DAILY KEAGAN Administration Fluticasone/Umeclidinium/Vilanterol 1 puff 11/03/22 11:40 11/06/22 07:35 Fluticasone/Umeclidin/Vilanter 100-62.5-25 Mcg Ellipta INHALATION 1 puff DAILYRT KEAGAN Administration Furosemide 40 mg 11/06/22 12:00 Furosemide Inj 40 Mg/4 Ml Vial IV PUSH Q8H KEAGAN Hydromorphone HCl 0.5 mg 11/04/22 17:59 11/04/22 21:30 Hydromorphone Hcl Inj (*Crx) 1 Mg/Ml Syr IV PUSH 0.5 mg Q2H PRN Administration Pain Rated 7-10 Piperacillin/Tazobactam/Dextrose 3.375 gm in 50 mls @ 100 mls/hr 10/31/22 18:00 11/05/22 22:59 Zosyn 3.375 Gm/D5w 50ml Pm IVPB 100 mls/hr Q6HR KEAGAN Administration Ketorolac Tromethamine 15 mg 11/02/22 15:03 11/05/22 15:28 Ketorolac 15 Mg/Ml Vial (*[facility])
[2022-11-06 18:22] LABS: Basophils Absolute Auto 0.1 K/mm3 (0.0-0.1); Basophils Percent Auto 0.9 % (0.2-1.2); Eosinophils Absolute Auto 0.2 K/mm3 (0-0.3); Eosinophils Percent Auto 2.2 % (0-4.4); Hematocrit 40.2 % (42.0-52.0); Hemoglobin 13.5 g/dL (14.0-18.0); Immature Granulocyte Absolute 0.03 K/mm3 (0.00-0.031); Immature Granulocyte Percent A 0.4 % (0-0.5); Lymphocytes Absolute Auto 1.65 K/mm3 (0.9-3.2); Lymphocytes Percent Auto 21.7 % (18.3-44.2); Mean Corpuscular HGB Conc 33.6 g/dl (32-36); Mean Corpuscular Hemoglobin 28.4 pg (26-34); Mean Corpuscular Volume 84.6 fl (80-100); Mean Platelet Volume 9.3 fl (7.4-10.4); Monocytes Absolute Auto 0.7 K/mm3 (0.1-0.6); Monocytes Percent Auto 9.2 % (2.6-8.5); Neutrophils Percent Auto 65.6 % (45.5-73.1); Platelet Count Result 295 k/mm3 (150-375); Red Blood Count 4.75 M/mm3 (4.6-6.20); Red Cell Distribution Width 13.1 % (11.5-14.5); White Blood Count 7.6 K/mm3 (4.5-10.0)
[2022-11-06 18:39] LABS: Alanine Aminotransferase 29 U/L (6-50); Albumin Level 3.3 g/dL (3.5-5.1); Alkaline Phosphatase 122 U/L (38-126); Anion Gap 5 mmol/L (8-16); Aspartate Amino Transferase 35 U/L (17-59); Bilirubin,Total 0.5 mg/dL (0.2-1.3); Blood Urea Nitrogen 7 mg/dL (9-20); Calcium 8.4 mg/dL (8.4-10.2); Carbon Dioxide 29 mmol/L (22-30); Chloride 103 mmol/L (98-107); Estimated CRCL calculation 70 ml/min; Estimated Glomerular Filt Rate > 60; Glucose 99 mg/dL (65-110); Potassium 3.2 mmol/L (3.4-5.0); Sodium 137 mmol/L (137-145)
[2022-11-07] VITALS: PULSE 61
[2022-11-07] MEDS: ACETAMINOPHEN/BUTALBITAL/CAFFEINE 325-50-40 MG TABLET (FIORICET) 1 TAB PO (02:42)
[2022-11-07 04:00] VITALS: PULSE 54
[2022-11-07] MEDS: FUROSEMIDE INJ 40 MG/4 ML VIAL IV PUSH ×2 (05:21→08:45)
[2022-11-07] MEDS: HYDROcodone/acetaminophen (*CRX) 5-325 MG TABLET 1 TAB PO ×2 (05:51→10:37)
[2022-11-07 06:00] VITALS: BP 136/79; PULSE 54; RESP 18; TEMP 36.2; O2SAT 97
[2022-11-07 06:36] LABS: Basophils Absolute Auto 0.1 K/mm3 (0.0-0.1); Basophils Percent Auto 1.3 % (0.2-1.2); Eosinophils Absolute Auto 0.2 K/mm3 (0-0.3); Eosinophils Percent Auto 2.3 % (0-4.4); Hematocrit 42.9 % (42.0-52.0); Hemoglobin 14.3 g/dL (14.0-18.0); Immature Granulocyte Absolute 0.04 K/mm3 (0.00-0.031); Immature Granulocyte Percent A 0.5 % (0-0.5); Lymphocytes Absolute Auto 1.95 K/mm3 (0.9-3.2); Lymphocytes Percent Auto 23.6 % (18.3-44.2); Mean Corpuscular HGB Conc 33.3 g/dl (32-36); Mean Corpuscular Hemoglobin 27.7 pg (26-34); Mean Corpuscular Volume 83.1 fl (80-100); Mean Platelet Volume 9.3 fl (7.4-10.4); Monocytes Absolute Auto 0.7 K/mm3 (0.1-0.6); Monocytes Percent Auto 8.9 % (2.6-8.5); Neutrophils Absolute Auto 5.3 K/mm3 (1.3-6.7); Neutrophils Percent Auto 63.4 % (45.5-73.1); Platelet Count Result 317 k/mm3 (150-375); Red Blood Count 5.16 M/mm3 (4.6-6.20); Red Cell Distribution Width 13.1 % (11.5-14.5); White Blood Count 8.3 K/mm3 (4.5-10.0)
[2022-11-07 06:45] LABS: Alanine Aminotransferase 30 U/L (6-50); Albumin Level 3.8 g/dL (3.5-5.1); Alkaline Phosphatase 128 U/L (38-126); Anion Gap 5 mmol/L (8-16); Aspartate Amino Transferase 31 U/L (17-59); Bilirubin,Total 0.5 mg/dL (0.2-1.3); Blood Urea Nitrogen 9 mg/dL (9-20); Carbon Dioxide 33 mmol/L (22-30); Chloride 96 mmol/L (98-107); Estimated CRCL calculation 63 ml/min; Estimated Glomerular Filt Rate > 60; Glucose 90 mg/dL (65-110); Potassium 2.9 mmol/L (3.4-5.0); Sodium 134 mmol/L (137-145)
--- NOTE | 2022-11-07 08:28 | PM.IMPN ---
Progress Note: A&P Assessment and Plan (1) Diverticulitis of colon with perforation: Code(s): K57.20 - Diverticulitis of large intestine with perforation and abscess without bleeding Status: Acute Assessment and Plan: Per surgery management, continue antibiotics 11/04: CT abd + pelvis showed cont microperforation with worsened scattered abscesses, de-escalated to CLD, reassess Diet advancing as tolerated, still with some worsened pain with p.o. intake, slowly advanced and monitor Appreciate general surgery consultation (2) New onset a-fib: Code(s): I48.91 - Unspecified atrial fibrillation Status: Acute Assessment and Plan: Now in normal sinus rhythm after amiodarone drip, metoprolol tartrate 25 mg twice daily was started, Cardiology has signed off, recommendation is for metoprolol succinate 25 mg once daily and aspirin 325 mg daily at discharge Echo was essentially normal Will discontinue home propranolol that was previously taken as needed (3) Anxiety: Code(s): F41.9 - Anxiety disorder, unspecified Status: Acute Assessment and Plan: Continue home Xanax (4) Hyperlipidemia: Code(s): E78.5 - Hyperlipidemia, unspecified Status: Acute Assessment and Plan: Continue statin (5) Obstructive sleep apnea: Code(s): G47.33 - Obstructive sleep apnea (adult) (pediatric) Status: Acute Assessment and Plan: Continue with home settings for CPAP (6) BPH (benign prostatic hyperplasia): Code(s): N40.0 - Benign prostatic hyperplasia without lower urinary tract symptoms Status: Acute Assessment and Plan: Stable (7) Chronic back pain: Code(s): M54.9 - Dorsalgia, unspecified; G89.29 - Other chronic pain Status: Acute Assessment and Plan: Continue gabapentin (8) Headache: Code(s): R51.9 - Headache, unspecified Status: Acute Assessment and Plan: Continue home meds, stable (9) Hepatic lesion: Code(s): K76.9 - Liver disease, unspecified Status: Acute Assessment and Plan: Ultrasound of liver showing two hemangiomas, LFTs within normal limits, follow up outpatient for further concerns Gallbludder sludge noted, no signs of GB disease, would consider HIDA scan in the future if patient became symptomatic Of note, patient states he has a history of multiple hemangiomas and peritoneal nodules near his liver that wer removed and found to be benign in 2019 (10) Chest pain: Code(s): R07.9 - Chest pain, unspecified Status: Acute Assessment and Plan: Resolved at this time, likely not cardiac, suspect pleuritic in nature from pleural effusions, cont lasix and monitor response cont trelegy for COPD CTA neg for PE, did show pleural effusions, given Lasix x2, check chest x-ray tomorrow Echo essentially WNL, mild valvular disease, EF 60-65%, no diastolic dysfunction, no pericardial effusion (11) Pleural effusion: Code(s): J90 - Pleural effusion, not elsewhere classified Status: Acute Assessment and Plan: Increased dose lasix yesterday, pleural effusions improved on CXR today, will give another dose of lasix today, then stop and monitor symptoms (12) Hypokalemia: Code(s): E87.6 - Hypokalemia Status: Acute Assessment and Plan: 2.9 today, replaced with 80 mEq KCl, recheck tomorrow am, likely d/t GI losses and decreased po intake with lasix administration Plan DVT prophylaxis with SCDs GI prophylaxis with PPI Code status full code Subjective Date/time seen: 11/07/22 08:28 Interval history: No overnight events noted. No chest pain or shortness of breath. No nausea, vomiting or diarrhea. No fevers or chills. Review of Systems Review of Systems: 12 point review of systems was assessed and was negative except as noted in the HPI Exam Narrative: General: No acute distres
[2022-11-07 08:30] VITALS: PULSE 60
[2022-11-07] MEDS: POTASSIUM CHLORIDE 20 MEQ TABLET 80 MEQ PO (08:44)
[2022-11-07 08:45] VITALS: PULSE 58
[2022-11-07] MEDS: METOPROLOL TARTRATE 25 MG TABLET PO (08:45)
[2022-11-07] MEDS: PANTOPRAZOLE 40 MG TABLET PO (08:45)
[2022-11-07] MEDS: SIMETHICONE 125 MG CHEW TAB PO ×2 (08:45→12:49)
[2022-11-07] MEDS: ROSUVASTATIN 10 MG TABLET 20 MG PO (08:45)
[2022-11-07] MEDS: ALPRAZolam (*CRX) 0.25 MG TABLET PO (08:45)
[2022-11-07] MEDS: CHOLECALCIFEROL 1,000 UNITS TABLET 1000 UNITS PO (08:45)
[2022-11-07] MEDS: DULoxetine HCL 30 MG CAPSULE.DR PO (08:46)
[2022-11-07] MEDS: ASPIRIN 81 MG ENTERIC TABLET PO (08:46)
[2022-11-07] MEDS: FLUTICASONE/UMECLIDIN/VILANTER 100-62.5-25 MCG ELLIPTA 1 PUFF INHALATION (10:20)
--- NOTE | 2022-11-07 10:39 | PM.DS ---
DS: Admitting Diagnosis Discharge Date 11/07/2022 Admitting Diagnosis Diverticulitis with micro perforation DS: Discharge Diagnosis Discharge Diagnosis (1) Diverticulitis of intestine with perforation and abscess: Code(s): K57.80 - Diverticulitis of intestine, part unspecified, with perforation and abscess without bleeding Status: Acute Assessment and Plan: improved IV antibiotics, home with cont po abx, low fiber diet, will need to f/u c PCP once returns home and will need to see GI doctor (2) Sepsis: Code(s): A41.9 - Sepsis, unspecified organism Status: Acute Assessment and Plan: secondary to above, resolved c conservative mgmt, IV abx (3) New onset a-fib: Code(s): I48.91 - Unspecified atrial fibrillation Status: Acute Assessment and Plan: stable, appreciate cardiology and medicine mgmt DS: Summary Hospital Course Reason for hospitalization: acute diverticulitis with microperforation and abscess Hospital Course: The patient is a 66-year-old male presenting to the emergency department complaining of severe abdominal pain. Workup, including CT, was significant for diverticulitis with micro perforation. The patient was subsequently admitted to the surgical service and started on IV antibiotics. He was also made NPO and started on IV fluids. Patient was noted to go into new onset AFib and medicine and Cardiology were also consulted. He was started on a drip and transferred to the cardiac chest pain floor. With their management he subsequently went into normal rhythm and was not symptomatic the remainder of hospitalization. His abdominal exam did initially get worse and repeat CT scan showed a small abscesses along with micro perforation. He was continued to be treated with IV antibiotics. Over the next few days, his exam dramatically improved and his white count normalized. He was able to be started on a diet which he tolerated without issue. At the time of his discharge, he is tolerating a low fiber diet and having largely normal bowel function. He will be sent home with p.o. antibiotics and analgesia. He is to follow up with this primary once he gets home. He will also need to see a GI doctor for likely colonoscopy in the next 4-6 weeks. Status at Discharge Functional status at discharge: independent ambulation Overall status at discharge: patient is progressing back to baseline Time Spent with Patient Time attestation: Total time spent providing and/or coordinating discharge services: Time spent: Less than 30 minutes Exam Const: General: cooperative, comfortable and no acute distress Resp: Auscultation: clear to auscultation bilaterally Cardio: Rate: regular rate Rhythm: regular rhythm GI: Inspection: normal to inspection and non-distended GI Palp: No abdominal tenderness, Yes Soft to palpation, No Tenderness to palpation present (GI), No Guarding due to palpation present (GI) and No Rigid due to palpation DS: Data Data Completed and Pending Labs on day of discharge: Labs from last 24 hours 11/07/22 11/07/22 11/06/22 06:16 06:16 18:12 WBC 8.3 RBC 5.16 Hgb 14.3 Hct 42.9 MCV 83.1 MCH 27.7 MCHC 33.3 RDW 13.1 Plt Count 317 MPV 9.3 Immature Gran % (Auto) 0.5 Neut % (Auto) 63.4 Lymph % (Auto) 23.6 [place] % (Auto) 8.9 H Eos % (Auto) 2.3 Baso % (Auto) 1.3 H Lymph # (Auto) 1.95 [place] # (Auto) 0.7 H Eos # (Auto) 0.2 Baso # (Auto) 0.1 Abs Immat Gran (auto) 0.04 H Absolute Neuts (auto) 5.3 Absolute Nucleated RBC 0.0 Nucleated RBC % 0.0 Sodium 134 L 137 Potassium 2.9 L 3.2 L Chloride 96 L 103 Carbon Dioxide 33 H 29 Anion Gap 5 L 5 L BUN 9 7 L Creatinine 1.00 0.90 Estim Creat Clear Calc 63 70 Estimated GFR > 60 > 60 Glucose 90 99 Calcium 9.0 8.4 Total Bilirubin 0.5 0.5 AST 31 35 ALT 30 29 Alkaline Phosphatase 128 H 122 Total Pr
--- NOTE | 2022-11-07 11:05 | PCNWS ---
Weekly nutritional screen. Patient is tolerating current low fiber diet with adequate intake at 90-100%. No weight loss reported. No nutritional needs at this time.
[2022-11-07 12:00] VITALS: PULSE 76
== END 2022-11-07 14:20 | disposition home or self-care (01) | DRG 872 ==
LOC: ANHED 10:50 → ANH3MEDSUR 13:08 → ANHCPC 11-01 14:19 → ANHIMU 11-02 16:52 → ANH3MEDSUR 11-04 14:27
PROVIDERS: Nurse Practitioner; Nurse Practitioner Family; Student in an Organized Health Care Education/Training Program; Admitting Provider Surgery; Emergency Provider Nurse Practitioner Adult Health; Visit Provider Surgery
DX: A41.9 Sepsis, unspecified organism (principal); K57.20 Diverticulitis of large intestine with perforation and abscess without bleeding; J98.11 Atelectasis; J90 Pleural effusion, not elsewhere classified; Z20.822 Contact with and (suspected) exposure to COVID-19; K21.9 Gastro-esophageal reflux disease without esophagitis; E78.5 Hyperlipidemia, unspecified; I48.91 Unspecified atrial fibrillation; E87.6 Hypokalemia; R07.9 Chest pain, unspecified; I25.10 Atherosclerotic heart disease of native coronary artery without angina pectoris; F41.9 Anxiety disorder, unspecified; N40.0 Benign prostatic hyperplasia without lower urinary tract symptoms; K76.9 Liver disease, unspecified; M54.9 Dorsalgia, unspecified; G89.29 Other chronic pain; G43.909 Migraine, unspecified, not intractable, without status migrainosus; Z95.5 Presence of coronary angioplasty implant and graft; Z87.891 Personal history of nicotine dependence; Z79.82 Long term (current) use of aspirin
CPT/HCPCS: 36415; 71045; 71046; 71275; 74177; 76705; 80048; 80053; 81001; 82948; 83605; 83690; 83735; 84443; 84484; 85025; 85027; 87040; 87636; 93005; 94640; 96361; 96374; 96375; 99285; A9270; C8929; J0282; J1160; J1170; J1885; J1940; J2270; J2405; J2543; J7030; J7042; Q9957; Q9967